=== PATIENT | female | born 1980 | race Caucasian/White ===

== ENCOUNTER 2018-12-25 00:48 | Outpatient (CLI) | payer BC, SELFPAY ==
--- NOTE | 2018-12-25 13:28 | DI.RAD_ITS ---
SYMPTOMS/DIAGNOSIS: LT SHOULDER PAIN, M25.512 LEFT SHOULDER: Five views were obtained. No bony or soft tissue abnormality seen.
== END 2018-12-25 01:08 ==
PROVIDERS: PCP Nurse Practitioner Family; Visit Provider Nurse Practitioner Family
DX: M25.512 Pain in left shoulder (principal)
CPT/HCPCS: 73030

== ENCOUNTER 2020-05-10 02:00 | Outpatient (CLI) | payer BC, SELFPAY ==
--- NOTE | 2020-05-10 08:15 | DI.MAMMO_ITS ---
EXAM: MAMMO SCREENING CLINICAL HISTORY: screening, Z12.39 TECHNIQUE: Mammograms were interpreted according to the usual protocol including computer analysis w [email or web address] CAD system, tomosynthesis and C-view imaging. COMPARISON: Baseline examination. FINDINGS: The breasts are composed of scattered fibroglandular densities, Breast Density category B. No suspicious masses or suspicious microcalcifications are seen. No skin thickening or abnormal axillary lymph nodes are seen. There has been no significant change from prior exams. IMPRESSION: BI-RADS Category 1 - Negative Yearly screening mammography is recommended. Breast Density Category B, scattered fibroglandular densities.
== END 2020-05-10 02:20 ==
PROVIDERS: PCP Nurse Practitioner Family; Visit Provider Nurse Practitioner Family
DX: Z12.31 Encounter for screening mammogram for malignant neoplasm of breast (principal)
CPT/HCPCS: 77063; 77067

== ENCOUNTER 2021-07-06 15:19 | Outpatient (REF) | payer BC, SELFPAY ==
--- NOTE | 2021-07-06 14:45 | PAPFT_PTH ---
PATIENT: Mayela Power LOC: [facility] U#:[id number] AGE/SX: 40/F ROOM: RE07/06/[address]: MELISSA Nash : 1980 BED: DIS: 07/06/2021 SPEC #: [id number] RECD: 07/10/21 12:06 STATUS: NANI RESamuel #: [id number] MARITZA: 07/06/21 14:[address]: Kyra Prince DEPT: [facility] Cytology RECD BY: Robyn Alberts Tissues: 1 - CX/ENDOCX FOR PAP SMEARS Procedures: PAP THIN PREP/UVM Screening HPV DNA PROBE Comments: [id number]
== END 2021-07-06 15:20 | disposition home or self-care (01) ==
LOC: LBN 15:19
PROVIDERS: PCP Nurse Practitioner Family; Visit Provider Nurse Practitioner Family
DX: Z12.4 Encounter for screening for malignant neoplasm of cervix (principal); Z11.51 Encounter for screening for human papillomavirus (HPV)
CPT/HCPCS: 88142; 87624

== ENCOUNTER 2022-01-24 03:35 | Outpatient (CLI) | payer BC, SELFPAY ==
[2022-01-24 07:49] LABS: Hemoglobin A1C 5.3 % (<5.7)
[2022-01-24 08:09] LABS: Anion Gap 6.6 mmol/L (3-11); BUN 12 mg/dL (7-18); CO2 29.4 mmol/L (21.0-32.0); CREATININE 0.9 mg/dL (0.55-1.02); Calcium 8.6 mg/dL (8.5-10.1); Calculated LDL 104 mg/dL (<100); Chloride 103 mmol/L (98-107); Cholesterol 172 mg/dL (<200); Glucose 92 mg/dL (74-106); HDL Cholesterol 49 mg/dL (40-60); Sodium 139 mmol/L (136-145); Triglyceride 97 mg/dL (<150)
== END 2022-01-24 03:36 | disposition home or self-care (01) ==
LOC: LBO 03:35
PROVIDERS: PCP Nurse Practitioner Family; Visit Provider Nurse Practitioner Family
DX: Z00.00 Encounter for general adult medical examination without abnormal findings (principal)
CPT/HCPCS: 36415; 80048; 80061; 83036

== ENCOUNTER 2022-07-05 14:17 | Outpatient (REF) | payer BC, SELFPAY ==
[2022-07-08 15:31] LABS: Helicobacter pylori Ag, Feces Negative (Negative)
== END 2022-07-05 14:18 | disposition home or self-care (01) ==
LOC: LBN 14:17
PROVIDERS: PCP Nurse Practitioner Family; Visit Provider Nurse Practitioner Family
DX: R10.13 Epigastric pain (principal)
CPT/HCPCS: 87338

== ENCOUNTER 2022-07-12 01:34 | Outpatient (CLI) | payer BC, SELFPAY ==
[2022-07-12 07:38] LABS: Abs Immature Grans 0.04 10^3/uL (0.0-0.06); Absolute Basophil Count 0.05 10^3/uL (0.0-0.2); Absolute Eosinophil Count 0.18 10^3/uL (0.0-0.7); Absolute Lymphocyte Count 2.34 10^3/uL (1.2-3.4); Absolute Monocyte Count 0.63 10^3/uL (0.1-0.8); Absolute Neutrophil Count 5.07 10^3/uL (1.2-6.7); Basophils % 0.6; Eosinophils % 2.2; HCT 46.9 % (36.0-46.0); HGB 15.3 g/dL (11.2-15.7); Immature Grans % 0.5; Lymphocytes % 28.2; MCH 28.3 pg (27.0-33.0); MCHC 32.6 % (32.0-36.0); MCV 87 fL (80-95); MPV 10.7 fL (8.0-11.0); Monocytes % 7.6; Neutrophils % 60.9; Platelet Count 271 10^3/uL (130-400); RBC 5.41 10^6/uL (3.93-5.22); RDW-SD 40.8 fL; WBC 8.31 10^3/uL (4.4-10.8)
[2022-07-12 08:13] LABS: ALT 26 U/L (14-59); AST 16 U/L (15-37); Albumin 3.8 g/dL (3.4-5.0); Alkaline Phosphatase 65 U/L (46-116); Amylase 35 U/L (25-115); Anion Gap 1.6 mmol/L (3-11); BUN 14 mg/dL (7-18); Bilirubin, Total 0.3 mg/dL (0.2-1.0); CO2 30.4 mmol/L (21.0-32.0); CREATININE 0.8 mg/dL (0.55-1.02); Calcium 8.5 mg/dL (8.5-10.1); Chloride 100 mmol/L (98-107); Estimated GFR 94.28 (mL/min/1.73m2); Glucose 91 mg/dL (74-106); Lipase 102 U/L (73-393); Potassium 3.7 mmol/L (3.5-5.1); Sodium 132 mmol/L (136-145); Total Protein 7.6 g/dL (6.4-8.2)
== END 2022-07-12 01:35 | disposition home or self-care (01) ==
PROVIDERS: PCP Nurse Practitioner Family; Visit Provider Nurse Practitioner Family
DX: R10.13 Epigastric pain (principal)
CPT/HCPCS: 36415; 80053; 83690; 82150; 85025

== ENCOUNTER 2023-03-17 09:57 | Day surgery (SDC) | payer BC, SELFPAY ==
--- NOTE | 2023-03-16 19:16 | W.PM.DSUDISC ---
Date of service: 03/17/23 Time of Service: 12:25 Discharge Plan Disposition Patient Disposition: Home Condition: Good Discharge Details Reason For Visit: EGD Attending Provider: Silas Waters Primary Care Provider: Kyra Prince Home Meds and New Rx's Prescriptions: Continued omeprazole 20 mg capsule,delayed release(DR/EC) 20 mg PO BID PRN famotidine 20 mg tablet 20 mg PO BID PRN (Reason: heartburn) Qty: 90 3RF Discharge Instructions Additional Instructions: Mayela, we were able to complete your EGD today without any difficulty. To the naked eye, everything appeared normal. The anatomy is just as I would expect, and I did not see any signs of inflammation, obstructions, or other problems that would be associated with the pain and discomfort that you experience. Like we talked about, however, there are some problems of the upper gastrointestinal symptoms that are not evident to the naked eye. I did perform random biopsies along multiple portions of the esophagus, stomach, and duodenum to assess for some of these problems. Like we talked about before your procedure, we will still plan to do the gallbladder ultrasound, and HIDA scan. So please keep those appointments. once I have the results from the biopsies and those test results, I will be in touch. 1. If tolerated, consume a soft, low fiber diet for 1-2 days. 2. Do not drive, drink alcohol, operate machinery, make critical decisions, or do activities that require coordination or balance for 24 hours. 3. You may experience a sore throat for 24 to 48 hours. You may use throat lozenges or gargle with warm salt water to relieve the discomfort. 4. Because air was put into your stomach during the procedure, you may experience some belching. 5. Go directly to the emergency room if you notice any of the following: Develop chills (warm to touch), or if you have a thermometer and your temperature is above 101 Difficulty breathing or difficultly swallowing Persistent vomiting Severe abdominal pain, other than gas cramps Severe chest pain Black, tarry stools Any bleeding ? exceeding one tablespoon 6. Call your physician if the site where your intravenous was started becomes red, swollen, painful, and warm to touch. 7. Your physician has reviewed your pre-procedure medications. Please continue to take those medications as previously ordered. You will be given specific information/education regarding any changes to your medications before leaving. Activity:: Activity as Tolerated Diet:: As Tolerated Discharge Orders Discharge Orders: Discharge Order (Routine); Ordered 03/16/23 Ordered By: Silas Waters DS: Diagnosis Discharge Diagnosis (1) Epigastric abdominal pain: Status: Acute Asessment and Plan: We will follow-up with the pathology results
--- NOTE | 2023-03-16 19:18 | ENDO_ITS ---
Date of service: 03/17/23 Time of Service: 12:22 Endoscopy Report DATE OF PROCEDURE: 03/17/23 PRE-OP DIAGNOSIS: Abdominal pain POST-OP DIAGNOSIS: same PROCEDURE: EGD with biopsies SURGEON: Silas Waters ANESTHESIA TYPE: General:No Airway ESTIMATED BLOOD LOSS: 10 PATHOLOGY: other (Duodenal, gastric antrum and body biopsies. Esophageal biopsies) COMPLICATIONS: None DISPOSITION: same day INDICATIONS: Mayela is a 42 year old woman with several months of midepigastric abdominal pain refractory to PPI therapy. PROCEDURE START TIME: 11:59 PROCEDURE END TIME: 12:07 FINDINGS: Normal-appearing EGD PROCEDURE DESCRIPTION: After the initiation of monitored anesthetic care, and with the assistance of a bite block, I advanced a standard gastroscope through the mouth past the hypopharynx and into the esophagus.? Under the direct vision of the scope, I advanced down the esophagus into the stomach.? Once I entered the stomach, I performed a brief inspection, followed by retroflexion towards the gastric cardia.? This appeared normal.? After that, I gently advanced the scope around the incisura angularis and examined the pylorus.? This also appeared normal.? Next, I advanced the scope through the pylorus into the duodenum.? The mucosa was pink and healthy appearing.? There were no abnormalities.? I was able to visualize bile draining into the duodenum through the ampulla Vater. ?I perform random biopsies of the duodenum before bringing the camera back up into the stomach. Again, I carefully examined all regions of the stomach. I did not see any polyps, tumors, AV malformations, or anything else out of the ordinary. I perform random biopsies of the gastric antrum and body. I then brought the camera back up to the GE junction. The Z-line and GE junction were normal- appearing right around 36 cm. ?Finally, I withdrew the scope along the length of the esophagus taking great care to examine the entirety of the mucosa.? I perform random biopsies of the esophagus as well. I did not appreciate any abnormalities.
[2023-03-17 10:00] VITALS: BP 108/90; PULSE 84; RESP 16; TEMP 36.2; O2SAT 100
[2023-03-17] MEDS: Lactated Ringers 1,000 ML 80 ML IV (10:35)
--- NOTE | 2023-03-17 11:16 | W.ANESPRE ---
General Info Date of Service Date Performed: 03/17/23 Height: 5 ft 1 in Weight: 65.1 kg Body Mass Index (BMI): 27.1 Surgical Procedure: Operation Date: 03/17/23 11:35 Proposed Procedure Side Surgeon p Gastroscopy Silas Waters MD Meds Allergies and Home Medications Allergies Allergy/AdvReac Type Severity Reaction Status Date / Time No Known Allergies Allergy Verified 03/17/23 10:15 Home Medication Medication Instructions Recorded famotidine 20 mg tablet 20 mg PO BID PRN heartburn #90 tabs 09/30/22 omeprazole 20 mg capsule,delayed 20 mg PO BID PRN 12/19/22 release Current Visit Medications: Current Medications Generic Name Dose Route Start Last Admin Trade Name Freq PRN Reason Stop Dose Admin Hyoscyamine Sulfate 0.125 mg 03/16/23 19:19 Hyoscyamine 0.125 Mg Sl/Oral/Chew SL 04/15/23 19:18 DIRECTED PRN Ringer's Solution 1,000 mls @ 80 mls/hr 03/17/23 06:00 03/17/23 10:35 IV 04/13/23 23:59 80 mls/hr INFUSION FAYE Administration IV Miscellaneous Supplies 1 each 03/17/23 06:00 Iv Access IV 04/13/23 23:59 DIRECTED FAYE Ondansetron HCl 4 mg 03/16/23 19:19 Ondansetron 4 Mg/2 Ml Vial IVP 04/15/23 19:18 Q4H PRN PRN Nausea / Vomiting Sodium Chloride 0 ml 03/17/23 06:00 Normal Saline Flush 10 Ml Syr IV 04/13/23 23:59 PRN PRN Sodium Chloride 0 ml 03/17/23 06:00 Normal Saline 10 Ml Vial IJ 04/13/23 23:59 DIRECTED PRN Sterile Water 0 ml 03/17/23 06:00 Water,Injection,Sterile 10 Ml Vial IJ 04/13/23 23:59 DIRECTED PRN PFSH Active Problems Active Problems: Problem Status Onset Code Epigastric abdominal pain R10.13 Gastroesophageal reflux disease K21.9 Cervicalgia M54.2 Hyperlipidemia E78.5 Cigarette smoker F17.210 Medical History Medical History COVID-19 virus infection (~07/2022) Surgical History Surgical History History of ankle surgery (~02/2011) Right ankle reconstruction and osteophyte excision History of removal of nevus (~2012) 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 Tobacco Smoking/Tobacco Use Status: Current every day Tobacco Type: cigarettes Passive smoking exposure: Yes Second hand exposure: Yes Alcohol Alcohol Intake: current Alcohol intake frequency: a few times a month Alcohol type: beer Substance Use Substance use: Never Substance use type: does not use Prental History History 0 Para Hx # Term Pregnancies Multiple births Hx # Pregnancies Ectopic pregnancies AB induced Hx Number of Living Children AB spontaneous Vital Signs and Lab Results Vital Signs Most Recent Vital Signs in EMR: Most Recent Vital Signs Temp Pulse Resp BP Pulse Ox 36.2 C L 84 16 108/90 100 03/17/23 10:00 03/17/23 10:00 03/17/23 10:00 03/17/23 10:00 03/17/23 10:00 Lab Results Blood Type / Crossmatch: No Data to Display Complete Blood Count: No Data to Display Complete Metabolic Panel: No Data to Display Liver Function Panel: No Data to Display Coagulation Panel: No Data to Display Cardiac Panel: No Data to Display Arterial Blood Gas: No Data to Display Venous Blood Gas: No Data to Display Pancreas Panel: No Data to Display Thyroid Panel: No Data to Display Infectious Disease: No Data to Display Blood Cultures: No Data to Display Toxicology Panel: No Data to Display Panel: No Data to Display Anesthesia Assessment and Plan Anesthesia History Personal History: No History of Anesthesia Complications Family History: No Family History of Anesthesia Complications Exercise Tolerance Exercise Tolerance: Metabolic Equivalents>4 Pertinent Negatives Pertinent Negatives: No Major Cardiovascular Symptoms or Complaints and No Major Pulmonary Symptoms or Complaints Cardiac & Pulmonary Exam Cardiac Exam: Normal S1/S2 Heart Sounds Pulmonary Exam: Clear Bilateral Breath Sounds Cardiac and Pulmonary Comment:: Smoker Implantable Cardiac Device Does patient have a Pacemaker or an ICD?: No Airway Exam Known Difficult Airway: No Mallampati Class: 2 Mouth Opening: Normal (> 3cm) Thyromental Distance: Greater than 3 cm Neck Range of Motion: Full ROM Neck Circumference: Normal Teeth Condition: Normal Dentition ASA Classification ASA Score: ASA 2 Emergency Case?: No NPO Status NPO Status: NPO Clears >2 hours, Solids >8 hours Status Status: Negative HCG Anesthesia Plan Resuscitation Status: Full Code Anesthesia Technique: General Anesthesia Airway Planned: Natural Airway Monitors Used: Standard Monitors
[2023-03-17 11:49] VITALS: BMI 27.1
--- NOTE | 2023-03-17 12:02 | STOM_PTH ---
PATIENT: Mayela Power LOC: [facility] U#:[id number] AGE/SX: 42/F ROOM: RE03/17/[address]: Silas Waters MD : 1980 BED: DIS: 03/17/2023 SPEC #: [id number] RECD: 03/17/23 13:15 STATUS: [facility] #: [id number] MARITZA: 03/17/23 12:[address]: Silas Waters DEPT: Surgical Specimen RECD BY: Cleopatra Alonso ENTERED: 03/17/23 13:16 SP TYPE: STOMACH OTHR DR: Kyra Prince, MELISSA Tissues: 1 - BIOPSY BOWEL 2 - STOMACH BIOPSY 3 - STOMACH BIOPSY 4 - ESOPHAGUS BIOPSY Procedures: GROSS AND MICRO LEVEL 4 Comments: [id number]
[2023-03-17 12:17] VITALS: BP 102/81; PULSE 91; RESP 18; TEMP 36.6; O2SAT 97
[2023-03-17 12:47] VITALS: BP 113/85; PULSE 76; RESP 18; TEMP 36.6; O2SAT 100
--- NOTE | 2023-03-17 13:10 | W.ANESPOSTOP ---
Postoperative Evaluation Date, Time and Location Date Performed: 03/17/23 Time Performed: 12:47 Patient Location: Day Surgery Unit Vital Signs Most Recent Imported Vital Signs: Most Recent Vital Signs Temp Pulse Resp BP Pulse Ox 36.6 C 76 18 113/85 100 03/17/23 12:47 03/17/23 12:47 03/17/23 12:47 03/17/23 12:47 03/17/23 12:47 Pain Score Most Recent Pain Score: Most Recent Pain Score Pain Level 0 03/17/23 12:47 Assessment Mental Status: Awake (Alert & Oriented to Patient Baseline) Airway and Respiratory Function: Patent airway with normal (patient baseline) respiratory exam Cardiovascular Function: Hemodynamically Stable Hydration Status: Adequately Hydrated Nausea & Vomiting: No Nausea or Vomiting Pain: Pt. Denies Any Pain Peripheral Nerve Block: Patient did not receive a nerve block
== END 2023-03-17 12:58 | disposition home or self-care (01) ==
PROVIDERS: PCP Nurse Practitioner Family; Visit Provider Surgery
PROC: 0DJ68ZZ Inspection of Stomach, Via Natural or Artificial Opening Endoscopic (ICD-10-PCS; CPT 43235; principal; 2023-03-17 11:30)
DX: R10.13 Epigastric pain (principal); K22.89 Other specified disease of esophagus; K31.89 Other diseases of stomach and duodenum
CPT/HCPCS: 43239; 88305; J2405

== ENCOUNTER 2023-03-28 00:21 | Outpatient (CLI) | payer BC, SELFPAY ==
--- NOTE | 2023-03-28 07:15 | DI.US_ITS ---
Exam(s) US ABDOMEN LIMITED EXAM: US ABDOMEN LIMITED CLINICAL HISTORY: gallbladder not visualized on last US,pre hida,epigastric abd pain,r10.13 TECHNIQUE: Ultrasound abdomen performed using standard protocol. COMPARISON: Today's ultrasound as well as prior ultrasound was reviewed. FINDINGS: There is no ascites evident. LIVER: There are no hepatic lesions evident nor dilatation of intrahepatic ducts. GALLBLADDER/BILIARY: Gallbladder is contracted. No obvious shadowing calculi. The common hepatic duct isnot dilated, measuring 4mm at the level of aprish hepatis. PANCREAS: There is no evidence of pancreatic mass nor dilatation of the pancreatic duct. RIGHT KIDNEY:No evidence of solid mass, calculus, nor hydronephrosis. No cortical cysts evident. IMPRESSION: 1. Contracted gallbladder, similar to the previous study. No obvious shadowing gallstones. 2. Common hepatic duct is not dilated, measuring 4 mm. 3. There is no ascites. DATA REPOSITORY:
--- NOTE | 2023-03-28 07:15 | DI.NM_ITS ---
Exam(s) NM HEPATOBILIARY SCAN GRP EXAM: NM HEPATOBILIARY SCAN GRP CLINICAL HISTORY: epigastric abd pain,r10.13,? biliary dyskenesia. TECHNIQUE: Injected dose: 5 mCi Tc-99 profound COMPARISON: Prior ultrasound reviewed FINDINGS: There is normal uptake and excretion of radiopharmaceutical by the liver. There is radiopharmaceutic al activity down the CBD and duodenal C-loop and into left upper quadrant small bowel loops. However , there is no uptake evident in the gallbladder, even at 2.5 hours CCK was not therefore administered. IMPRESSION: Abnormal study. There is absence of activity in the gallbladder lumen at 2.5 hours. Findings are co nsistent with obstruction of the cystic duct.
== END 2023-03-28 00:41 ==
LOC: DI 00:21
PROVIDERS: PCP Nurse Practitioner Family; Visit Provider Surgery
DX: R10.13 Epigastric pain (principal); K82.0 Obstruction of gallbladder
CPT/HCPCS: 78227; 76705

== ENCOUNTER 2023-06-15 14:34 | Inpatient (IN) | payer BC, SELFPAY ==
[2023-06-15 14:38] VITALS: BP 134/99; PULSE 85; RESP 20; TEMP 36.8; O2SAT 99
[2023-06-15 14:41] VITALS: BP 134/99; PULSE 81; RESP 18; O2SAT 98
--- NOTE | 2023-06-15 15:02 | ED.GENADUL_ITS ---
Discharge Plan Discharge Details Chief Complaint: Abd Prob Primary Care Provider: Kyra Prince ED Provider: Kyle Arroyo Home Meds and New Rx's Prescriptions: No Action sucralfate 1 gram tablet 1 g PO QACHS Qty: 90 3RF Rx Instructions: Take as instructed simethicone [Gas Relief (simethicone)] 125 mg capsule 125 mg PO QD-BID PRN (Reason: abdominal distention) Qty: 90 3RF Rx Instructions: Take as instructed Medical Decision Making Medical Records Medical records narrative: 42-year-old lady who was diagnosed with choledocholithiasis with mild biliary dilatation. This diagnosis was read by CAT scan. She had significant normalities of her transaminases with mild elevation of her bilirubin which was 5. She was treated initially with 15 mg of Toradol with good results. Following the results of all her blood work which included normal CBC and no elevation of the white count and a normal lipase, the case was discussed with Dr. Palmer who admitted the patient for further management HPI General Date/Time Provider Initiated Documentation: 06/15/23 15:02 . HPI Narrative: 42-year-old woman presents to the emergency department with epigastric pain with some radiation to the right since Friday after eating some grilled cheese and pizzas. Associate with some nausea no vomiting. No fevers no chills tried placing a heating pad on her epigastrium without any relief. Took 1 Motrin last night without any relief. Is a lady who was diagnosed with a dysfunctional gallbladder in April of this year. She was seen by Dr. Waters from surgery was recommended cholecystectomy but patient did not want to do this during the summer. He states that the pain has been relentless since Friday night Related Data Home Medications Medication Instructions Recorded Confirmed simethicone 125 mg capsule (Gas 125 mg PO QD-BID PRN abdominal 04/02/23 06/15/23 Relief (simethicone)) distention #90 caps sucralfate 1 gram tablet 1 g PO QACHS bile reflux #90 tabs 04/02/23 06/15/23 Previous Rx's Medication Instructions Recorded simethicone 125 mg capsule (Gas 125 mg PO QD-BID PRN abdominal 04/02/23 Relief (simethicone)) distention #90 caps sucralfate 1 gram tablet 1 g PO QACHS bile reflux #90 tabs 04/02/23 Allergies Allergy/AdvReac Type Severity Reaction Status Date / Time No Known Allergies Allergy Verified 06/15/23 14:42 General Stated Complaint: Abd Prob MILAN: 3 Review of Systems Narrative: 10 point review of system is negative unless otherwise specified in the HPI PFSH All Active Problems Epigastric abdominal pain (Acute) Gastroesophageal reflux disease (Chronic) Cervicalgia (Chronic) Hyperlipidemia (Chronic) Cigarette smoker (Chronic) Medical History COVID-19 virus infection (~07/2022) Surgical History History of ankle surgery (~02/2011) Right ankle reconstruction and osteophyte excision History of removal of nevus (~2012) 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 Family History Mother Heart disease Atrial fibrillation Hypertension Father Alcohol abuse Depression Heart disease Hyperlipidemia Hypertension Sister Hypertension Maternal Grandfather Heart disease Hypertension Carotid artery disease Valvular heart disease TIA (transient ischemic attack) Maternal Grandmother Depression TIA (transient ischemic attack) Paternal Grandfather Stroke Heart disease Hypertension Hyperlipidemia Paternal Grandmother Depression Social History Smoking/Tobacco Use Status: Current every day Tobacco Type: cigarettes Tobacco: How many years used: 20 Quit status: quit date established (has quit before but restarted. ) Second Hand Exposure: Yes Smoking risk assessment performed?: Yes Alcohol Intake: current Alcohol Intake frequency: a few times a month Alcohol type: beer Drug use: Never Substance use type: does not use Caregiver/Support person: No Household members: significant other and children Housing: house Do you need help understanding health information?: Never Pets and animals: Yes Pets and animals: dog(s) Sexually active: Yes Do you think of yourself as: straight/heterosexual Current gender identity: female What is your relationship status?: living with partner How often do you talk on the phone with friends or family?: three or more times per week How often do you get together with friends or relatives?: twice per week How often do you attend mandaeism or mu-ism services?: 1-3 times per year Do you belong to any clubs or organized social groups?: no Panel score (0-1 are the most socially isolated patients): 2 What type of physical activity do you participate in: walking Duration: 15-30 minutes/day Frequency: 3-4 times per week Ebony/Scientologist: Cheondoism Special ebony needs: No Seatbelt use: always Helmet use: Yes Helmet use: always 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 Do you feel safe at home: Yes Do you feel safe in your relationship?: Yes Female Reproductive History Menstrual control method: other (Vasectomy) History History 0 Para Hx # Term Pregnancies Multiple births Hx # Pregnancies Ectopic pregnancies AB induced Hx Number of Living Children AB spontaneous Exam Narrative Exam Narrative: General: A,A Ox3, Calm, no apparent distress, well developed, pleasant and cooperative Head Size/Shape: normocephalic, atraumatic Eyes Pupils: PERRLA Extraocular Mobility: intact and symmetrical Conjunctiva: non-injected, anicteric, no discharge Ears, Nose, Throat Nares: patent bilaterally Oral Cavity: moist Neck: no masses, no crepitus Lymph Nodes: no cervical lymphadenopathy Respiratory Respiratory Effort: no dyspnea Auscultation: clear to auscultation bilaterally, normal breath sounds, no wheezing, no rales/crackles Cardiovascular Heart Auscultation: regular rate and rhythm, normal S1, normal S2, no murmurs, no rubs, no gallops, Abdomen Inspection and Palpation: soft, epigastric discomfort, equivical [place] non- distended, no hepatosplenomegaly Musculoskeletal System Joints, Bones, and Muscles: no deformities Extremities: warm and well-perfused, no cyanosis, capillary refill <2 seconds Skin Skin Inspection: no rash, no lesions, no bruising Neurological Motor: normal tone, normal strength, moving all extremities equally Psychiatric: good insight, good judgement, normal mood and affect Course Vital Signs Vital signs: Vital Signs Temperature 36.8 C 06/15/23 14:38 Pulse 85 06/15/23 14:38 Respiratory Rate 20 06/15/23 14:38 Blood Pressure 134/99 H 06/15/23 14:38 Pulse Oximetry 99 06/15/23 14:38 Temperature 36.8 C 06/15/23 14:38 Pulse 85 06/15/23 14:38 Respiratory Rate 20 06/15/23 14:38 Respiratory Effort Normal 06/15/23 14:43 Blood Pressure 134/99 H 06/15/23 14:38 Blood Pressure Position Sitting 06/15/23 14:38 Pulse Oximetry 99 06/15/23 14:38 Oxygen Delivery Method Room Air 06/15/23 14:38 Oxygen Flow Rate 0 06/15/23 14:38 Pain Level 8 06/15/23 14:38 PAWSS Have you Been Recently Intoxicated or Drunk Within the Last 30 days?: Yes Have you Ever Experienced Previous Episodes of Alcohol Withdrawal?: No Have you ever Experienced Withdrawal Seizures?: No Have you ever Experienced Delirium Tremens(DT)s?: No Have you ever undergone Alcohol Rehabilitation Treatment (i.e, inpt ot outpatient treatment programs)?: No Have you ever Experienced Blackouts?: No Have you ever Combined Alcohol with other Downers within the last 90 days?: No Have you ever Combined Alcohol with any other Substance of Abuse during the last 90 days?: No Positive Blood Alcohol level on Presentation? [PCS.BAL]: No Evidence of Increased Autonomic Activity (i.e. HR>120, tremor, sweating, agitation, nausea)?: No Result: 1
[2023-06-15] MEDS: Ondansetron 4 MG/2 ML VIAL IVP (15:16)
[2023-06-15] MEDS: Ketorolac 15 MG/ML VIAL IVP (15:16)
[2023-06-15 15:17] LABS: Abs Immature Grans 0.04 10^3/uL (0.0-0.06); Absolute Basophil Count 0.04 10^3/uL (0.0-0.2); Absolute Eosinophil Count 0.19 10^3/uL (0.0-0.7); Absolute Lymphocyte Count 1.81 10^3/uL (1.2-3.4); Absolute Monocyte Count 0.44 10^3/uL (0.1-0.8); Absolute Neutrophil Count 4.96 10^3/uL (1.2-6.7); Basophils % 0.5; Eosinophils % 2.5; HCT 44.9 % (36.0-46.0); HGB 14.9 g/dL (11.2-15.7); Immature Grans % 0.5; Lymphocytes % 24.2; MCH 28.3 pg (27.0-33.0); MCHC 33.2 % (32.0-36.0); MCV 85 fL (80-95); MPV 10.7 fL (8.0-11.0); Monocytes % 5.9; Neutrophils % 66.4; Platelet Count 270 10^3/uL (130-400); RBC 5.27 10^6/uL (3.93-5.22); RDW 13.7 % (11.7-14.6); RDW-SD 42.6 fL; WBC 7.48 10^3/uL (4.4-10.8)
[2023-06-15] MEDS: Normal Saline 1,000 ML 1000 ML IV (15:26)
--- NOTE | 2023-06-15 15:30 | DI.CT_ITS ---
Exam(s) CT ABDOMEN PELVIS W EXAM: CT ABDOMEN PELVIS W CLINICAL HISTORY: abd pain. TECHNIQUE: Imaging Protocol: Axial computed tomography images with coronal and sagittal reformatted images were created and reviewed CONTRAST MATERIAL: Intravenous: Omnipaque-350 100cc Oral: None COMPARISON: No exams were available for comparison FINDINGS: VISUALIZED LUNG BASES: No nodules nor pleural effusions evident. ABDOMEN: There is no ascites. LIVER: There are no focal hepatic lesions evident. There is periportal edema evident in both hepatic lobes GALLBLADDER/BILIARY: There is cholelithiasis. There is a prominent gallstone in the gallbladder fund us. Mild gallbladder wall thickening evident. There are also radiopaque calculi evident in the lowe r CBD, the stacked over a cephalocaudal distance of 1.7 cm. CBD diameter is minimally prominent-8 mm . PANCREAS: No evidence of pancreatitis nor dilatation pancreatic duct. No pancreatic masses. SPLEEN: Spleen is not enlarged. No obvious intrasplenic lesions. Splenic and portal veins are paten t. ADRENALS: There are no significant adrenal masses. KIDNEYS:No cysts evident. No solid renal masses. No calculi nor hydronephrosis.. ABDOMINAL AORTA: Abdominal aorta is not enlarged. LYMPH NODES:There is no retroperitoneal nor paraaortic adenopathy. ABDOMINAL WALL: No evidence of significant anterior abdominal wall nor inguinal hernia. GI: There is no evidence of bowel obstruction, free air, nor abscess. PELVIS: GI: No evidence of appendicitis.No evidence of sigmoid diverticulitis. LYMPH NODES: There is no intrapelvic nor inguinal adenopathy. REPRODUCTIVE: Uterus is deviated towards the right. Endometrial thickness is approximately 1 cm. Ri ght adnexa unremarkable. There is a peripherally enhancing cyst in left ovary measuring to by 2 by 1 .7 cm, probably corpus luteal. URINARY BLADDER: No calculi nor obvious masses evident OSSEOUS: No fractures and no significant osseous lesions. IMPRESSION: 1. Cholelithiasis and choledocholithiasis with mild dilatation of the CBD (8 mm) above a stack of josue culi seen in the lower CBD which extends over a cephalocaudal distance of 1.7 cm. These calculi in t he lower CBD measure approximately 4 mm size. 2. No evidence of pancreatitis nor dilatation pancreatic duct. 3. There is rim enhancing cyst in left ovary measuring 1.7 by 2 cm, probably corpus luteal. Endometr ium slightly thickened. These findings can be further studied with ultrasound. Main acute findings here are in the biliary tree, as described above. First read by [facility] RADIATION DOSE DELIVERED: 685.67mGy.cm Total DLP DATA REPOSITORY: All CT scans at this facility are submitted to the National Radiology Data Registry (NRDR) Dose Index Registry (DIR) with the [employer] (ACR). RADIATION OPTIMIZATION: All CT scans at this facility use at least one of these dose optimization te chniques: automated exposure control; mA and/or kV adjustment per patient size (includes targeted exa ms where dose is matched to clinical indication); or iterative reconstruction.
[2023-06-15 15:32] LABS: ALT 604 U/L (14-59); AST 200 U/L (15-37); Albumin 3.9 g/dL (3.4-5.0); Alkaline Phosphatase 193 U/L (46-116); Anion Gap 9.3 mmol/L (3-11); BUN 7 mg/dL (7-18); CO2 28.7 mmol/L (21.0-32.0); CREATININE 0.8 mg/dL (0.55-1.02); Calcium 8.7 mg/dL (8.5-10.1); Chloride 101 mmol/L (98-107); Glucose 103 mg/dL (74-106); Sodium 139 mmol/L (136-145); Total Protein 7.5 g/dL (6.4-8.2)
[2023-06-15 15:56] LABS: Lipase 33 U/L (16-77)
[2023-06-15] MEDS: Normal Saline Flush 10 ML SYR IVP (16:21)
[2023-06-15] MEDS: Normal Saline - Diluent 50 ML VIAL IJ (16:22)
[2023-06-15] MEDS: Omnipaque 350 MG/ML 100 ML BTL IJ (16:22)
[2023-06-15 16:33] LABS: Bilirubin Small (Negative); Blood Small (Negative); Clarity Clear (Clear); Glucose Negative (Negative); Ketones Trace mg/dL (Negative); Leukocyte Esterase Negative (Negative); Nitrite Negative (Negative); Urobilinogen 0.2 mg/dL (Up to 0.2)
[2023-06-15 16:47] LABS: Bacteria Rare HPF (Negative); C & S Indicated? No; Casts Negative LPF (Negative); Crystals Negative HPF (Negative); Epithelial Cells Rare HPF (Negative); Mucus Negative (Negative); WBC Negative HPF (0-5)
[2023-06-15] MEDS: POTASSIUM CHLORIDE 10 MEQ/100 ML BAG 100 MEQ IVPB ×2 (16:52→19:19)
--- NOTE | 2023-06-15 17:14 | DI.VRAD_ITS ---
PROCEDURE INFORMATION: Exam: CT Abdomen And Pelvis With Contrast Exam date and time: 06/15/2023 4:36 PM Age: 42 years old Clinical indication: Other: Abd pain TECHNIQUE: Imaging protocol: Computed tomography of the abdomen and pelvis with contrast. Radiation optimization: All CT scans at this facility use at least one of these dose optimization techniques: automated exposure control; mA and/or kV adjustment per patient size (includes targeted exams where dose is matched to clinical indication); or iterative reconstruction. Contrast material: OMNI 350; Contrast volume: 100 ml; Contrast route: INTRAVENOUS (IV); COMPARISON: NM HEPATOBILIARY SCAN GRP 03/28/2023 10:37 AM FINDINGS: Lungs: Lung bases are clear. Pleural spaces: No pleural effusion. Heart: Normal heart size. No pericardial effusion. No coronary artery atherosclerotic calcium is visible. Liver: Liver is normal in size and contour. Gallbladder and bile ducts: Gallstones, gallbladder distention, intrahepatic and extrahepatic biliary dilatation, and a distal common bile duct stone at the level of the pancreatic head measuring 4 x 3 mm. Series 4, image 33. Series 6, image 49 and 50. It is possible that there are multiple small stones stacking in the distal common bile duct. The length of the calcium cephalo caudal on the coronal view is 1.6 cm. Pancreas: No pancreatic ductal dilatation. Pancreatic parenchyma is unremarkable. Spleen: The spleen is normal in size, contour and attenuation. Adrenal glands: The adrenal glands are normal in size and contour bilaterally. Kidneys and ureters: The kidneys bilaterally are unremarkable. Normal attenutation. No hydronephrosis. No calculi. Stomach and bowel: Unremarkable. No obstruction. No mucosal thickening. Appendix: No evidence of appendicitis. Intraperitoneal space: Unremarkable. No free air. No significant fluid collection. Vasculature: Unremarkable. No abdominal aortic aneurysm. Lymph nodes: Unremarkable. No enlarged lymph nodes. Urinary bladder: Urinary bladder is unremarkable in appearance. No wall thickening. No intravesicular calculi. No intravesicular gas. Reproductive: Uterus is unremarkable. Nonspecific left ovarian rim enhancing cyst measuring 2.0 x 1.6 cm. A nonemergent pelvic ultrasound follow-up is suggested. Bones/joints: Unremarkable. No acute fracture. Soft tissues: Unremarkable. IMPRESSION: 1. Choledocholithiasis and mild biliary dilatation. Appearance suggests multiple stone stacking in the common bile duct over a length of 1.6 cm. Stones measure approximally 3 x 4 mm in diameter. Common hepatic duct measuring 8 mm. Mild intrahepatic biliary dilatation. 2. No pancreatic inflammation or pancreatic ductal dilatation. 3. Nonspecific left ovarian rim enhancing cyst measuring 2 x 1.6 cm. Recommend nonemergent pelvic ultrasound follow-up. Dictated and Authenticated by: Lance Crow MD. Ordering:GLENYS Wright MD
[2023-06-15 17:28] VITALS: BP 139/101; PULSE 79; RESP 25; O2SAT 98
--- NOTE | 2023-06-15 17:33 | HPE_ITS ---
Date of service: 06/15/23 Time of Service: 19:46 Assessment and Plan Assessment and plan (1) Choledocholithiasis: Status: Acute Assessment and plan: Mrs Power is a pleasant 42-year-old female who comes in with gallstones in her gallbladder and in her common bile duct. Her LFTs are elevated as is her T bilirubin. Her pain is currently well controlled on morphine and Toradol. She is not nauseated and is not vomiting. I discussed with her the pathophysiology of her disease and the plan for a trip down to [facility] for ERCP and removal of the stones. After that as long as she does not develop pancreatitis from the ERCP we can plan her laparoscopic cholecystectomy. For now we will let her dr ink clear liquids. She will be n.p.o. after midnight in case that she can go down to [facility] tomorrow. I will recheck her labs in the morning. I have been able to answer her questions and she is in agreement with the above-stated plan. History of Present Illness Consults Consult date: 06/15/23 Requesting physician: Kyle Arroyo Narrative: Mrs Power is a pleasant 42-year-old female who comes into the emergency department today with ongoing abdominal pain for a week. She was seen back in April by Dr. Waters in our office for the same epigastric right upper quadrant pain. She underwent EGD which was unremarkable. 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 They discussed laparoscopic cholecystectomy but at that time the patient was having minimal symptoms. She states that her pain started on Friday she had eaten some steamer's and lobster and then had pain. The pain has walked waxed and waned all week. She decided to come in today because the pain was just not getting any better. Work-up in the emergency department showed a normal white count, her potassium was low at 3 which was replaced in the ER and her total bili was elevated at 5 AST was elevated at 200 ALT at 604 and alk phos of 193. A CT scan was also done which I reviewed myself. It shows gallstones and at least 1 if not 2 stones in the common bile duct. There is intra and extrahepatic biliary dilatation there is no gallbladder wall thickening or pericholecystic fluid on the CT scan. She is otherwise healthy. She does have hyperlipidemia and does smoke. No abdominal surgeries in her past. There is no family history of anesthetic issues. She denies any chest pain or shortness of breath. Review of Systems Constitutional Constitutional: Denies anorexia, Denies fever(s), Denies headache(s), Denies poor appetite and Denies weight loss Eyes Eyes: Denies change in vision ENT Ears, Nose, Mouth, and Throat: Denies change in voice, Denies dysphagia and Denies headache(s) Cardiovascular Cardiovascular: Denies chest pain, Denies chest pain at rest, Denies irregular heart rhythm, Denies palpitations, Denies dyspnea and Denies dyspnea on exertion Respiratory Respiratory: Denies cough, Denies dyspnea and Denies dyspnea on exertion Gastrointestinal Gastrointestinal: Reports system reviewed and no additional complaints, except as documented and Denies dysphagia Genitourinary Genitourinary: Reports system reviewed and no additional complaints, except as documented Musculoskeletal Musculoskeletal: Reports system reviewed and no additional complaints, except as documented Integumentary/Breasts Skin/Breast: Reports system reviewed and no additional complaints, except as documented Neurologic Neurologic: Reports system reviewed and no additional complaints, except as documented and Denies headache(s) Psychiatric Psychiatric: Reports system reviewed and no additional complaints, except as documented Endocrine Endocrine: Reports system reviewed and no additional complaints, except as documented and Denies palpitations Hematologic/Lymphatic Hematologic/Lymphatic: Reports system reviewed and no additional complaints, except as documented PFSH All Active Problems Choledocholithiasis (Acute) Epigastric abdominal pain (Acute) Gastroesophageal reflux disease (Chronic) Cervicalgia (Chronic) Hyperlipidemia (Chronic) Cigarette smoker (Chronic) Medical History COVID-19 virus infection (~07/2022) Surgical History History of ankle surgery (~02/2011) Right ankle reconstruction and osteophyte excision History of removal of nevus (~2012) 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 Family History Mother Heart disease Atrial fibrillation Hypertension Father Alcohol abuse Depression Heart disease Hyperlipidemia Hypertension Sister Hypertension Maternal Grandfather Heart disease Hypertension Carotid artery disease Valvular heart disease TIA (transient ischemic attack) Maternal Grandmother Depression TIA (transient ischemic attack) Paternal Grandfather Stroke Heart disease Hypertension Hyperlipidemia Paternal Grandmother Depression Social History Smoking/Tobacco Use Status: Current every day Tobacco Type: cigarettes Tobacco: How many years used: 20 Quit status: quit date established (has quit before but restarted. ) Second Hand Exposure: Yes Smoking risk assessment performed?: Yes Alcohol Intake: current Alcohol Intake frequency: a few times a month Alcohol type: beer Drug use: Never Substance use type: does not use Caregiver/Support person: No Household members: significant other and children Housing: house Do you need help understanding health information?: Never Pets and animals: Yes Pets and animals: dog(s) Sexually active: Yes Do you think of yourself as: straight/heterosexual Current gender identity: female What is your relationship status?: living with partner How often do you talk on the phone with friends or family?: three or more times per week How often do you get together with friends or relatives?: twice per week How often do you attend rastafari or muslim services?: 1-3 times per year Do you belong to any clubs or organized social groups?: no Panel score (0-1 are the most socially isolated patients): 2 What type of physical activity do you participate in: walking Duration: 15-30 minutes/day Frequency: 3-4 times per week Ebony/Roman Catholic: Restorationism Special ebony needs: No Seatbelt use: always Helmet use: Yes Helmet use: always Drive intox or ride w/intox cement truck driver: No Do you feel safe at home: Yes Do you feel safe in your relationship?: Yes Female Reproductive History Menstrual control method: other (Vasectomy) History History 0 Para Hx # Term Pregnancies Multiple births Hx # Pregnancies Ectopic pregnancies AB induced Hx Number of Living Children AB spontaneous Meds Allergies and Home Medications Allergies Allergy/AdvReac Type Severity Reaction Status Date / Time No Known Allergies Allergy Verified 06/15/23 14:42 Home Medications Medication Instructions Recorded Confirmed Type simethicone 125 mg capsule (Gas 125 mg PO QD-BID PRN abdominal 04/02/23 06/15/23 Rx Relief (simethicone)) distention #90 caps sucralfate 1 gram tablet 1 g PO QACHS bile reflux #90 tabs 04/02/23 06/15/23 Rx Exam Const General: cooperative, comfortable and no acute distress Nutritional Appearance: average body habitus Orientation: alert and oriented x3 HENMT Head: normocephalic and atraumatic Resp Effort & Inspection: normal respiratory effort Auscultation: clear to auscultation bilaterally Cardio Rate: regular rate Rhythm: regular rhythm Heart Sounds: no gallops, no murmurs and no rubs GI Inspection: normal to inspection Palpation: soft, no hepatosplenomegaly and nontender Auscultation: normal bowel sounds Results Imaging Abdomen CT scan report/results: report reviewed and image reviewed CT scan - pelvis: report reviewed and image reviewed Labs 06/15/23 15:05 06/15/23 15:05 Labs: Laboratory Results - last 24 hr 06/15/23 06/15/23 06/15/23 15:05 15:05 15:05 WBC 7.48 RBC 5.27 H Hgb 14.9 Hct 44.9 MCV 85 MCH 28.3 MCHC 33.2 RDW 13.7 Plt Count 270 MPV 10.7 Immature Gran % 0.5 Neutrophils % 66.4 Lymphocytes % 24.2 Monocytes % 5.9 Eosinophils % 2.5 Basophils % 0.5 Nucleated RBC % 0.0 Absolute Neutrophils 4.96 Absolute Lymphocytes 1.81 Absolute Monocytes 0.44 Absolute Eosinophils 0.19 Absolute Basophils 0.04 Sodium 139 Potassium 3.0 L Chloride 101 Carbon Dioxide 28.7 Anion Gap 9.3 BUN 7 Creatinine 0.8 Est GFR (CKD-EPI 2020) 93.70 Glucose 103 Calcium 8.7 Total Bilirubin 5.0 H AST 200 H ALT 604 H Alkaline Phosphatase 193 H Total Protein 7.5 Albumin 3.9 Lipase 33 Urine Color Urine Clarity Urine pH Ur Specific [place] Urine Protein Urine Ketones Urine Blood Urine Nitrite Urine Bilirubin Urine Urobilinogen Ur Leukocyte Esterase Urine RBC Urine WBC Ur Epithelial Cells Urine Crystals Urine Bacteria Urine Casts Urine Mucus Ur Culture Indicated? Urine Glucose 06/15/23 16:10 WBC RBC Hgb Hct MCV MCH MCHC RDW Plt Count MPV Immature Gran % Neutrophils % Lymphocytes % Monocytes % Eosinophils % Basophils % Nucleated RBC % Absolute Neutrophils Absolute Lymphocytes Absolute Monocytes Absolute Eosinophils Absolute Basophils Sodium Potassium Chloride Carbon Dioxide Anion Gap BUN Creatinine Est GFR (CKD-EPI 2020) Glucose Calcium Total Bilirubin AST ALT Alkaline Phosphatase Total Protein Albumin Lipase Urine Color Yellow Urine Clarity Clear Urine pH 7.0 Ur Specific [place] 1.010 Urine Protein Negative Urine Ketones Trace H Urine Blood Small H Urine Nitrite Negative Urine Bilirubin Small H Urine Urobilinogen 0.2 Ur Leukocyte Esterase Negative Urine RBC 3-5 H Urine WBC Negative Ur Epithelial Cells Rare Urine Crystals Negative Urine Bacteria Rare Urine Casts Negative Urine Mucus Negative Ur Culture Indicated? No Urine Glucose Negative Last Vital Signs Temp 98.3 F 06/15/23 14:38 Pulse 79 06/15/23 17:28 Resp 25 H 06/15/23 17:28 BP 139/101 H 06/15/23 17:28 Pulse Ox 98 06/15/23 17:28 PAWSS Have you Been Recently Intoxicated or Drunk Within the Last 30 days?: Yes Have you Ever Experienced Previous Episodes of Alcohol Withdrawal?: No Have you ever Experienced Withdrawal Seizures?: No Have you ever Experienced Delirium Tremens(DT)s?: No Have you ever undergone Alcohol Rehabilitation Treatment (i.e, inpt ot outpatient treatment programs)?: No Have you ever Experienced Blackouts?: No Have you ever Combined Alcohol with other Downers within the last 90 days?: No Have you ever Combined Alcohol with any other Substance of Abuse during the last 90 days?: No Positive Blood Alcohol level on Presentation? [PCS.BAL]: No Evidence of Increased Autonomic Activity (i.e. HR>120, tremor, sweating, agitation, nausea)?: No Result: 1 Time Spent Time spent with Patient: 40-54 minutes Time was spent: preparing to see the patient(eg.review tests), obtaining and/or reviewing separately otained hiistory, ordering medications,tests, procedures, referring, communicating with other health acute care assistant, indepentently interpreting results, counseling the patient and care coordination
[2023-06-15] MEDS: cefTRIAXone 1 GM/50 ML BAG IVPB (18:16)
[2023-06-15] MEDS: MORPHine 4 MG/ML SYR (18:17)
[2023-06-15] MEDS: Bisacodyl 10 MG SUPP PR (19:32)
[2023-06-15] MEDS: Polyethylene Glycol 3350 17 GM PACKET PO (19:33)
[2023-06-15] MEDS: Pantoprazole 40 MG VIAL IVP (19:34)
[2023-06-15 20:29] VITALS: BP 121/82; PULSE 75; RESP 18; TEMP 36.5; O2SAT 96
[2023-06-15] MEDS: Lactated Ringers 1,000 ML 75 ML IV (20:30)
[2023-06-15 20:49] VITALS: BP 121/82; PULSE 75; RESP 16; TEMP 36.5; O2SAT 96
[2023-06-16] VITALS (7 sets, daily range): BP systolic 94–143; BP diastolic 62–89; PULSE 68–86; RESP 16–18; TEMP 36.3–36.9; O2SAT 97–98
[2023-06-16] MEDS: MORPHine 2 MG/ML SYR IVP ×3 (02:45→20:06)
[2023-06-16] MEDS: POTASSIUM CHLORIDE 10 MEQ/100 ML BAG 100 MEQ IV (02:46)
[2023-06-16 07:03] LABS: Abs Immature Grans 0.02 10^3/uL (0.0-0.06); Absolute Basophil Count 0.04 10^3/uL (0.0-0.2); Absolute Lymphocyte Count 1.89 10^3/uL (1.2-3.4); Absolute Monocyte Count 0.46 10^3/uL (0.1-0.8); Absolute Neutrophil Count 3.89 10^3/uL (1.2-6.7); Basophils % 0.6; Eosinophils % 3.1; HGB 14.1 g/dL (11.2-15.7); Immature Grans % 0.3; Lymphocytes % 29.1; MCH 28.7 pg (27.0-33.0); MCHC 33.6 % (32.0-36.0); MCV 85 fL (80-95); MPV 10.9 fL (8.0-11.0); Monocytes % 7.1; Neutrophils % 59.8; Platelet Count 248 10^3/uL (130-400); RBC 4.92 10^6/uL (3.93-5.22); RDW 13.6 % (11.7-14.6); RDW-SD 42.8 fL
[2023-06-16 07:11] LABS: Prothrombin Time 10.3 sec (9.3-11.0)
[2023-06-16 07:18] LABS: ALT 391 U/L (14-59); AST 91 U/L (15-37); Albumin 3.2 g/dL (3.4-5.0); Alkaline Phosphatase 163 U/L (46-116); Anion Gap 8.8 mmol/L (3-11); BUN 4 mg/dL (7-18); Bilirubin, Total 3.1 mg/dL (0.2-1.0); CO2 25.2 mmol/L (21.0-32.0); CREATININE 0.7 mg/dL (0.55-1.02); Calcium 8.1 mg/dL (8.5-10.1); Chloride 107 mmol/L (98-107); Estimated GFR 109.98 (mL/min/1.73m2); Glucose 85 mg/dL (74-106); Potassium 3.7 mmol/L (3.5-5.1); Sodium 141 mmol/L (136-145); Total Protein 6.5 g/dL (6.4-8.2)
[2023-06-16] MEDS: Normal Saline Flush 10 ML SYR IVP (08:40)
[2023-06-16] MEDS: Lactated Ringers 1,000 ML 75 ML IV (10:29)
--- NOTE | 2023-06-16 13:46 | W.PM.PROGNOT ---
Date of Service Date of service: 06/16/23 Time of Service: 08:30 Assessment and Plan Assessment and plan (1) Choledocholithiasis: Status: Acute Assessment and plan: ercp in am supportive care labs in am (2) Epigastric abdominal pain: Status: Acute (3) Gastroesophageal reflux disease: Status: Chronic (4) Hyperlipidemia: Status: Chronic (5) Cigarette smoker: Status: Chronic Subjective Subjective Interval history since last seen: Pt is doing well. no headaches. No CP or SOB. no productive cough. no dysuria. no leg pain or swelling. Pt is feeling good. Still requiring narcotics for pain. She showered and moved her bowels today. She feels hungry. We d/w that she probably will not have her ERCP until tomorrow. And depending on what that shows we will determine timing of surgery. Her labs today are improved. Exam Const Other: PHYSICAL EXAM GENERAL APPEARANCE: Alert, healthy appearance, oriented, x 3,? in no acute distress HYDRATION: Well hydrated HEAD, EYES, EARS, NECK, THROAT: Head is normocephalic, pupils equal, round, reactive to light and accommodation, ocular movement intact, mild jaundice NECK: no lymphadenopathy.? Trachea midline.? Neck supple.? No JVD LUNGS: normal respiration/normal chest excursion. ?Clear to auscultation bilaterally. ?No wheeze. ?HEART: Regular rate and rhythm. no murmurs EXTREMITY: No edema or cyanosis.? no leg pain, redness, swelling.? ABDOMEN: Soft and good bowel sounds. She is having mild occasional right upper quadrant pain and she is requiring morphine for still abdominal pain Objective Last Vital Signs Temp 36.5 C 06/16/23 11:09 Pulse 77 06/16/23 11:09 Resp 16 06/16/23 11:09 BP 110/74 06/16/23 11:09 Pulse Ox 97 06/16/23 11:09 Laboratory Results - last 24 hr 06/15/23 06/15/23 06/15/23 15:05 15:05 15:05 WBC 7.48 RBC 5.27 H Hgb 14.9 Hct 44.9 MCV 85 MCH 28.3 MCHC 33.2 RDW 13.7 Plt Count 270 MPV 10.7 Immature Gran % 0.5 Neutrophils % 66.4 Lymphocytes % 24.2 Monocytes % 5.9 Eosinophils % 2.5 Basophils % 0.5 Nucleated RBC % 0.0 Absolute Neutrophils 4.96 Absolute Lymphocytes 1.81 Absolute Monocytes 0.44 Absolute Eosinophils 0.19 Absolute Basophils 0.04 PT INR Sodium 139 Potassium 3.0 L Chloride 101 Carbon Dioxide 28.7 Anion Gap 9.3 BUN 7 Creatinine 0.8 Est GFR (CKD-EPI 2020) 93.70 Glucose 103 Calcium 8.7 Total Bilirubin 5.0 H AST 200 H ALT 604 H Alkaline Phosphatase 193 H Total Protein 7.5 Albumin 3.9 Lipase 33 Urine Color Urine Clarity Urine pH Ur Specific [place] Urine Protein Urine Ketones Urine Blood Urine Nitrite Urine Bilirubin Urine Urobilinogen Ur Leukocyte Esterase Urine RBC Urine WBC Ur Epithelial Cells Urine Crystals Urine Bacteria Urine Casts Urine Mucus Ur Culture Indicated? Urine Glucose 06/15/23 06/16/23 06/16/23 16:10 06:45 06:45 WBC 6.50 RBC 4.92 Hgb 14.1 Hct 42.0 MCV 85 MCH 28.7 MCHC 33.6 RDW 13.6 Plt Count 248 MPV 10.9 Immature Gran % 0.3 Neutrophils % 59.8 Lymphocytes % 29.1 Monocytes % 7.1 Eosinophils % 3.1 Basophils % 0.6 Nucleated RBC % 0.0 Absolute Neutrophils 3.89 Absolute Lymphocytes 1.89 Absolute Monocytes 0.46 Absolute Eosinophils 0.20 Absolute Basophils 0.04 PT INR Sodium 141 Potassium 3.7 Chloride 107 Carbon Dioxide 25.2 Anion Gap 8.8 BUN 4 L Creatinine 0.7 Est GFR (CKD-EPI 2020) 109.98 Glucose 85 Calcium 8.1 L Total Bilirubin 3.1 H AST 91 H ALT 391 H Alkaline Phosphatase 163 H Total Protein 6.5 Albumin 3.2 L Lipase Urine Color Yellow Urine Clarity Clear Urine pH 7.0 Ur Specific [place] 1.010 Urine Protein Negative Urine Ketones Trace H Urine Blood Small H Urine Nitrite Negative Urine Bilirubin Small H Urine Urobilinogen 0.2 Ur Leukocyte Esterase Negative Urine RBC 3-5 H Urine WBC Negative Ur Epithelial Cells Rare Urine Crystals Negative Urine Bacteria Rare Urine Casts Negative Urine Mucus Negative Ur Culture Indicated? No Urine Glucose Negative 06/16/23 06:45 WBC RBC Hgb Hct MCV MCH MCHC RDW Plt Count MPV Immature Gran % Neutrophils % Lymphocytes % Monocytes % Eosinophils % Basophils % Nucleated RBC % Absolute Neutrophils Absolute Lymphocytes Absolute Monocytes Absolute Eosinophils Absolute Basophils PT 10.3 INR 1.0 Sodium Potassium Chloride Carbon Dioxide Anion Gap BUN Creatinine Est GFR (CKD-EPI 2020) Glucose Calcium Total Bilirubin AST ALT Alkaline Phosphatase Total Protein Albumin Lipase Urine Color Urine Clarity Urine pH Ur Specific [place] Urine Protein Urine Ketones Urine Blood Urine Nitrite Urine Bilirubin Urine Urobilinogen Ur Leukocyte Esterase Urine RBC Urine WBC Ur Epithelial Cells Urine Crystals Urine Bacteria Urine Casts Urine Mucus Ur Culture Indicated? Urine Glucose PAWSS Have you Been Recently Intoxicated or Drunk Within the Last 30 days?: Yes Have you Ever Experienced Previous Episodes of Alcohol Withdrawal?: No Have you ever Experienced Withdrawal Seizures?: No Have you ever Experienced Delirium Tremens(DT)s?: No Have you ever undergone Alcohol Rehabilitation Treatment (i.e, inpt ot outpatient treatment programs)?: No Have you ever Experienced Blackouts?: No Have you ever Combined Alcohol with other Downers within the last 90 days?: No Have you ever Combined Alcohol with any other Substance of Abuse during the last 90 days?: No Positive Blood Alcohol level on Presentation? [PCS.BAL]: No Evidence of Increased Autonomic Activity (i.e. HR>120, tremor, sweating, agitation, nausea)?: No Result: 1 CBC White Blood Count 6.50 10^3/uL (4.4-10.8) 06/16/23 Red Blood Count 4.92 10^6/uL (3.93-5.22) 06/16/23 Hemoglobin 14.1 g/dL (11.2-15.7) 06/16/23 Hematocrit 42.0 % (36.0-46.0) 06/16/23 Mean Corpuscular Volume 85 fL (80-95) 06/16/23 Mean Corpuscular Hemoglobin 28.7 pg (27.0-33.0) 06/16/23 Mean Corpuscular Hemoglobin Concent 33.6 % (32.0-36.0) 06/16/23 Red Cell Distribution Width 13.6 % (11.7-14.6) 06/16/23 Platelet Count 248 10^3/uL (130-400) 06/16/23 Mean Platelet Volume 10.9 fL (8.0-11.0) 06/16/23 Neutrophils % 59.8 06/16/23 Lymphocytes % 29.1 06/16/23 Monocytes % 7.1 06/16/23 Eosinophils % 3.1 06/16/23 Basophils % 0.6 06/16/23 Immature Granulocytes % 0.3 06/16/23 Comprehensive Metabolic Panel Sodium 141 mmol/L (136-145) 06/16/23 06:45 Potassium 3.7 mmol/L (3.5-5.1) 06/16/23 06:45 Chloride 107 mmol/L (98-107) 06/16/23 06:45 Carbon Dioxide 25.2 mmol/L (21.0-32.0) 06/16/23 06:45 BUN 4 mg/dL (7-18) L 06/16/23 06:45 Creatinine 0.7 mg/dL (0.55-1.02) 06/16/23 06:45 Estimated GFR/1.73 m2 >= 60.00 (mL/min/1.73m2) 01/24/22 07:08 Glucose 85 mg/dL (74-106) 06/16/23 06:45 Calcium 8.1 mg/dL (8.5-10.1) L 06/16/23 06:45 Total Bilirubin 3.1 mg/dL (0.2-1.0) H 06/16/23 06:45 ALT 391 U/L (14-59) H 06/16/23 06:45 AST 91 U/L (15-37) H 06/16/23 06:45 Alkaline Phosphatase 163 U/L (46-116) H 06/16/23 06:45 Total Protein 6.5 g/dL (6.4-8.2) 06/16/23 06:45 Albumin 3.2 g/dL (3.4-5.0) L 06/16/23 06:45 Time Spent with Patient Time Spent with Patient: 25-34 minutes Time was spent: preparing to see the patient(eg.review tests), obtaining and/or reviewing separately otained hiistory, ordering medications,tests, procedures, referring, communicating with other health child care attendant, indepentently interpreting results, counseling the patient and care coordination
[2023-06-16] MEDS: ACETAMINOPHEN 1,000 MG/100 ML BTL 400 MG IVPB (15:21)
--- NOTE | 2023-06-16 16:07 | INITIAL_ITS ---
Date of service: 06/16/23 Time of Service: 14:57 Care Management Initial Assmt Initial Assessment REASON FOR HOSPITALIZATION:: Choledocholithiasis PREVIOUS FUNCTIONAL STATUS/SOCIAL/FAMILY SUPPORTS:: Resides with her and children in [place], [place]. 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 She reports that in the summer she also works at the [employer] and [employer]. Independent at baseline in the community. CURRENT FUNCTIONAL STATUS:: Positive affect, pleasant and forthcoming with information. Up independently, clear liquid diet, well informed with excellent health literacy. ADVANCE DIRECTIVES:: Agent appointment; Hayde-mother as agent, Father as alternate. Has patient been provided with info about the portal/API?: Yes Did the patient sign up for the portal?: Yes CODE STATUS:: Full Code INSURANCE COVERAGE / FINANCIAL ISSUES:: BC/BS Out of State ([place]) PRIMARY CARE PHYSICIAN:: Kyra Prince POTENTIAL DISCHARGE NEEDS:: ERCP at [facility]-transport via EMS PATIENT/FAMILY EDUCATION NEEDS:: Review of treatment and discharge planning. ANTICIPATED BARRIERS TO DISCHARGE:: ERCP TRANSPORTATION:: Via private vehicle. PLAN:: NPO after midnight for down and back to [facility] for ERCP anticipated for tomorrow. CM continues to follow. PFSH All Active Problems Choledocholithiasis (Acute) Epigastric abdominal pain (Acute) Gastroesophageal reflux disease (Chronic) Cervicalgia (Chronic) Hyperlipidemia (Chronic) Cigarette smoker (Chronic) Medical History COVID-19 virus infection (~07/2022) Surgical History History of ankle surgery (~02/2011) Right ankle reconstruction and osteophyte excision History of removal of nevus (~2012) 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 Family History Mother Heart disease Atrial fibrillation Hypertension Father Alcohol abuse Depression Heart disease Hyperlipidemia Hypertension Sister Hypertension Maternal Grandfather Heart disease Hypertension Carotid artery disease Valvular heart disease TIA (transient ischemic attack) Maternal Grandmother Depression TIA (transient ischemic attack) Paternal Grandfather Stroke Heart disease Hypertension Hyperlipidemia Paternal Grandmother Depression Social History Smoking/Tobacco Use Status: Current every day Tobacco Type: cigarettes Tobacco: How many years used: 20 Quit status: quit date established (has quit before but restarted. ) Second Hand Exposure: Yes Smoking risk assessment performed?: Yes Alcohol Intake: current Alcohol Intake frequency: a few times a month Alcohol type: beer Drug use: Never Substance use type: does not use Caregiver/Support person: No Household members: significant other and children Housing: house Do you need help understanding health information?: Never Pets and animals: Yes Pets and animals: dog(s) Sexually active: Yes Do you think of yourself as: straight/heterosexual Current gender identity: female What is your relationship status?: living with partner How often do you talk on the phone with friends or family?: three or more times per week How often do you get together with friends or relatives?: twice per week How often do you attend episcopal or sikhism services?: 1-3 times per year Do you belong to any clubs or organized social groups?: no Panel score (0-1 are the most socially isolated patients): 2 What type of physical activity do you participate in: walking Duration: 15-30 minutes/day Frequency: 3-4 times per week Ebony/Episcopalian: Amish Special ebony needs: No Seatbelt use: always Helmet use: Yes Helmet use: always Drive intox or ride w/intox combine driver: No Do you feel safe at home: Yes Do you feel safe in your relationship?: Yes Female Reproductive History Menstrual control method: other (Vasectomy) History History 0 Para Hx # Term Pregnancies Multiple births Hx # Pregnancies Ectopic pregnancies AB induced Hx Number of Living Children AB spontaneous
[2023-06-16] MEDS: Ondansetron 4 MG/2 ML VIAL IVP (20:07)
[2023-06-17] VITALS (7 sets, daily range): BP systolic 94–130; BP diastolic 60–88; PULSE 67–99; RESP 16–20; TEMP 36.2–37; O2SAT 94–99
[2023-06-17] MEDS: MORPHine 2 MG/ML SYR IVP ×4 (06:13→21:32)
[2023-06-17 06:41] LABS: Prothrombin Time 10.2 sec (9.3-11.0)
[2023-06-17 06:51] LABS: ALT 280 U/L (14-59); AST 52 U/L (15-37); Alkaline Phosphatase 151 U/L (46-116); Anion Gap 8.3 mmol/L (3-11); BUN 2 mg/dL (7-18); Bilirubin, Total 2.6 mg/dL (0.2-1.0); CO2 26.7 mmol/L (21.0-32.0); CREATININE 0.8 mg/dL (0.55-1.02); Calcium 8.1 mg/dL (8.5-10.1); Chloride 106 mmol/L (98-107); Glucose 85 mg/dL (74-106); Potassium 3.5 mmol/L (3.5-5.1); Sodium 141 mmol/L (136-145); Total Protein 6.2 g/dL (6.4-8.2)
[2023-06-17] MEDS: Lactated Ringers 1,000 ML 75 ML IV (10:34)
[2023-06-17] MEDS: Normal Saline Flush 10 ML SYR IVP ×3 (13:16→18:28)
--- NOTE | 2023-06-17 16:01 | CMPROGNOTE_ITS ---
Date of service: 06/17/23 Time of Service: 16:01 Care Management Progress Note Progress Note Text Progress Note Text: S/O: Per MD, still awaiting ERCP, Dr. Palmer reports the procedure is scheduled for 1030 tomorrow at [facility]. A: 42 year old female admitted to [facility] 06/15/23 for Choledocholithiasis P: Mayela will transport via EMS, coordinated by Nursing Welder And Fitter for down and back appointment at [facility] for ERCP. CM continues to follow.
--- NOTE | 2023-06-17 16:01 | PDOC.CMPRO ---
Date of service: 06/17/23 Time of Service: 16:01 Care Management Progress Note Progress Note Text Progress Note Text: S/O: Per MD, still awaiting ERCP, Dr. Palmer reports the procedure is scheduled for 1030 tomorrow at [facility]. A: 42 year old female admitted to [facility] 06/15/23 for Choledocholithiasis P: Mayela will transport via EMS, coordinated by Nursing Lump Roller for down and back appointment at [facility] for ERCP. CM continues to follow.
--- NOTE | 2023-06-17 16:26 | PHA.REVIEW2 ---
Pharmacy Admission Review - Admission Clinical Review (Last Reviewed 06/15/23 @ 19:50 by Astrid Palmer MD) Choledocholithiasis (Acute) Epigastric abdominal pain (Acute) No Known Allergies Allergy (Verified 06/15/23 14:42) Resuscitation Status Full Code Height 5 ft 1 in Weight 63.5 kg - Renal Dosing Renal Dosing: BUN 2 mg/dL (7-18) L 06/17/23 05:55 Creatinine 0.8 mg/dL (0.55-1.02) 06/17/23 05:55 Medications needing adjustments: Reviewed List of meds needing interventions: eCrCl 77 ml/min - Anticoagulation Anticoagulation: Hgb 14.1 g/dL (11.2-15.7) 06/16/23 06:45 Hct 42.0 % (36.0-46.0) 06/16/23 06:45 Plt Count 248 10^3/uL (130-400) 06/16/23 06:45 INR 1.0 (0.9-1.1) 06/17/23 05:55 Creatinine 0.8 mg/dL (0.55-1.02) 06/17/23 05:55 DVT Prophylaxis: N/A Therapeutic Anticoagulation: N/A - Opiate Usage Evaluate Pain Scale/Pains Meds: Reviewed (morphine 2mg IVP prn) Scheduled Bowel Reg ordered if on Opiates?: No (+ BMs) - Relevant Labs Sodium 141 mmol/L (136-145) 06/17/23 05:55 Potassium 3.5 mmol/L (3.5-5.1) 06/17/23 05:55 Chloride 106 mmol/L (98-107) 06/17/23 05:55 Electrolytes, C-Reactive P, ESR: Reviewed - DM Control DM Control: Glucose 85 mg/dL (74-106) 06/17/23 05:55 DM Control: N/A - Cardiac Review BP, HR, EF%: N/A - Qtc Review QTc: N/A - IV to PO Switch IV Medications: Reviewed - Home Meds Home Med List reviewed: Reviewed - Current meds Current Medication Order Review: Reviewed
--- NOTE | 2023-06-17 16:46 | W.PM.PROGNOT ---
Date of Service Date of service: 06/17/23 Time of Service: 16:46 Assessment and Plan Assessment and plan (1) Choledocholithiasis: Status: Acute Assessment and plan: ERCP tomorrow at [facility] at 1030. Once she is back here we will recheck labs and then we will schedule her for surgery on Friday. Subjective Subjective Interval history since last seen: Followed up with Mayela this afternoon regarding the plan. I was able to talk to gastroenterology again down to [facility] and they do have a spot for her tomorrow. The plan is for her to go down tomorrow at 9 for the procedure at 1030. She will then come back to us and then we will plan surgery on Friday more than likely. She is on full liquids today until midnight and then nothing to eat until she comes back from her procedure. She has been afebrile she still has some discomfort and is taking morphine every so often. Bilirubin although a little bit lower than yesterday is still elevated at 2.7. Objective Last Vital Signs Temp 97.5 F L 06/17/23 15:14 Pulse 67 06/17/23 15:14 Resp 20 06/17/23 15:14 BP 124/85 06/17/23 15:14 Pulse Ox 97 06/17/23 15:14 Laboratory Results - last 24 hr 06/17/23 06/17/23 05:55 05:55 PT 10.2 INR 1.0 Sodium 141 Potassium 3.5 Chloride 106 Carbon Dioxide 26.7 Anion Gap 8.3 BUN 2 L Creatinine 0.8 Est GFR (CKD-EPI 2020) 93.70 Glucose 85 Calcium 8.1 L Total Bilirubin 2.6 H AST 52 H ALT 280 H Alkaline Phosphatase 151 H Total Protein 6.2 L Albumin 3.0 L PAWSS Have you Been Recently Intoxicated or Drunk Within the Last 30 days?: Yes Have you Ever Experienced Previous Episodes of Alcohol Withdrawal?: No Have you ever Experienced Withdrawal Seizures?: No Have you ever Experienced Delirium Tremens(DT)s?: No Have you ever undergone Alcohol Rehabilitation Treatment (i.e, inpt ot outpatient treatment programs)?: No Have you ever Experienced Blackouts?: No Have you ever Combined Alcohol with other Downers within the last 90 days?: No Have you ever Combined Alcohol with any other Substance of Abuse during the last 90 days?: No Positive Blood Alcohol level on Presentation? [PCS.BAL]: No Evidence of Increased Autonomic Activity (i.e. HR>120, tremor, sweating, agitation, nausea)?: No Result: 1 Time Spent with Patient Time Spent with Patient: <25 minutes Time was spent: other
[2023-06-17] MEDS: Pantoprazole 40 MG VIAL IVP (17:53)
[2023-06-18] MEDS: MORPHine 2 MG/ML SYR IVP ×2 (02:10→20:58)
[2023-06-18 07:15] VITALS: BP 108/73; PULSE 75; TEMP 36.5; O2SAT 95
[2023-06-18 07:16] LABS: Abs Immature Grans 0.01 10^3/uL (0.0-0.06); Absolute Basophil Count 0.03 10^3/uL (0.0-0.2); Absolute Eosinophil Count 0.26 10^3/uL (0.0-0.7); Absolute Lymphocyte Count 1.99 10^3/uL (1.2-3.4); Absolute Monocyte Count 0.52 10^3/uL (0.1-0.8); Absolute Neutrophil Count 3.07 10^3/uL (1.2-6.7); Basophils % 0.5; Eosinophils % 4.4; HCT 41.6 % (36.0-46.0); HGB 13.8 g/dL (11.2-15.7); Immature Grans % 0.2; Lymphocytes % 33.8; MCH 28.2 pg (27.0-33.0); MCHC 33.2 % (32.0-36.0); MCV 85 fL (80-95); MPV 10.9 fL (8.0-11.0); Monocytes % 8.8; Neutrophils % 52.3; Platelet Count 237 10^3/uL (130-400); RDW 13.6 % (11.7-14.6); RDW-SD 42.3 fL; WBC 5.88 10^3/uL (4.4-10.8)
--- NOTE | 2023-06-18 07:30 | PGE_ITS ---
Date of Service Date of service: 06/18/23 Time of Service: 07:30 Assessment and Plan Assessment and plan (1) Choledocholithiasis: Status: Acute Assessment and plan: Mayela is doing well this morning. She did have abdominal point yesterday after eating some ice cream. She is n.p.o. today for her ERCP which is scheduled for 1030 down at [facility]. She will be taken down an ambulance and then brought back. Plan is for then to have her undergo a laparoscopic cholecystectomy most likely on Friday. Subjective Subjective Interval history since last seen: Mayela is doing well this morning. She did have some ice cream last night which caused quite a bit of pain. She has had no fevers overnight. Her labs are pending this morning. Exam Const General: cooperative, comfortable and no acute distress Nutritional Appearance: average body habitus Orientation: alert and oriented x3 HENMT Head: normocephalic and atraumatic Resp Effort & Inspection: normal respiratory effort Auscultation: clear to auscultation bilaterally Cardio Rate: regular rate Rhythm: regular rhythm GI Palpation: soft, no hepatosplenomegaly and tender in the RUQ Objective Last Vital Signs Temp 97.7 F 06/18/23 07:15 Pulse 75 06/18/23 07:15 Resp 16 06/17/23 23:10 BP 108/73 06/18/23 07:15 Pulse Ox 95 06/18/23 07:15 Laboratory Results - last 24 hr 06/18/23 06:20 WBC 5.88 RBC 4.90 Hgb 13.8 Hct 41.6 MCV 85 MCH 28.2 MCHC 33.2 RDW 13.6 Plt Count 237 MPV 10.9 Immature Gran % 0.2 Neutrophils % 52.3 Lymphocytes % 33.8 Monocytes % 8.8 Eosinophils % 4.4 Basophils % 0.5 Nucleated RBC % 0.0 Absolute Neutrophils 3.07 Absolute Lymphocytes 1.99 Absolute Monocytes 0.52 Absolute Eosinophils 0.26 Absolute Basophils 0.03 PAWSS Have you Been Recently Intoxicated or Drunk Within the Last 30 days?: Yes Have you Ever Experienced Previous Episodes of Alcohol Withdrawal?: No Have you ever Experienced Withdrawal Seizures?: No Have you ever Experienced Delirium Tremens(DT)s?: No Have you ever undergone Alcohol Rehabilitation Treatment (i.e, inpt ot outpatient treatment programs)?: No Have you ever Experienced Blackouts?: No Have you ever Combined Alcohol with other Downers within the last 90 days?: No Have you ever Combined Alcohol with any other Substance of Abuse during the last 90 days?: No Positive Blood Alcohol level on Presentation? [PCS.BAL]: No Evidence of Increased Autonomic Activity (i.e. HR>120, tremor, sweating, agitation, nausea)?: No Result: 1 Time Spent with Patient Time Spent with Patient: <25 minutes Time was spent: counseling the patient
[2023-06-18 07:58] LABS: ALT 272 U/L (14-59); AST 89 U/L (15-37); Albumin 3.2 g/dL (3.4-5.0); Alkaline Phosphatase 164 U/L (46-116); Anion Gap 9.2 mmol/L (3-11); BUN 3 mg/dL (7-18); Bilirubin, Total 3.2 mg/dL (0.2-1.0); CO2 26.8 mmol/L (21.0-32.0); CREATININE 0.8 mg/dL (0.55-1.02); Calcium 8.4 mg/dL (8.5-10.1); Chloride 106 mmol/L (98-107); Glucose 82 mg/dL (74-106); Magnesium 1.9 mg/dL (1.8-2.4); Potassium 3.4 mmol/L (3.5-5.1); Sodium 142 mmol/L (136-145); Total Protein 6.6 g/dL (6.4-8.2)
--- NOTE | 2023-06-18 08:54 | CMPROGNOTE_ITS ---
Date of service: 06/18/23 Time of Service: 08:54 Care Management Progress Note Progress Note Text Progress Note Text: S/O: Per Dr. Palmer, Mayela will have a down and back appointment for an ERCP at 1030 at [facility]. CM continues to follow. A: 42 year old female admitted to [facility] 06/15/23 for Choledocholithiasis P: Mayela will transport via EMS, coordinated by Nursing Perinatal Director for down and back appointment at [facility] for ERCP. CM continues to follow.
--- NOTE | 2023-06-18 08:54 | PDOC.CMPRO ---
Date of service: 06/18/23 Time of Service: 08:54 Care Management Progress Note Progress Note Text Progress Note Text: S/O: Per Dr. Palmer, Mayela will have a down and back appointment for an ERCP at 1030 at [facility]. CM continues to follow. A: 42 year old female admitted to [facility] 06/15/23 for Choledocholithiasis P: Mayela will transport via EMS, coordinated by Nursing Motion Picture Commentator for down and back appointment at [facility] for ERCP. CM continues to follow.
[2023-06-18 14:51] VITALS: BP 119/81; PULSE 68; RESP 16; TEMP 37; O2SAT 95
--- NOTE | 2023-06-18 16:26 | PGE_ITS ---
Date of Service Date of service: 06/18/23 Time of Service: 16:26 Assessment and Plan Assessment and plan (1) Choledocholithiasis: Status: Acute Assessment and plan: Remedios is doing well. There is no report from [facility] so I will try to find it in their system. I will give her a low-fat diet for today and tomorrow and plan on surgery on Friday at 1230. I will recheck labs make sure that she does not have pancreatitis after her ERCP. Subjective Subjective Interval history since last seen: Remedios is back from [facility]. She underwent her ERCP procedure. She states that they told her that they removed 1 stone and sludge. She is feeling well. She is feeling hungry. She is got a little bit of a sore throat but otherwise feels fine. Her vitals are stable. Exam Resp Effort & Inspection: normal respiratory effort Objective Last Vital Signs Temp 98.6 F 06/18/23 14:51 Pulse 68 06/18/23 14:51 Resp 16 06/18/23 14:51 BP 119/81 06/18/23 14:51 Pulse Ox 95 06/18/23 14:51 Laboratory Results - last 24 hr 06/18/23 06/18/23 06:20 06:20 WBC 5.88 RBC 4.90 Hgb 13.8 Hct 41.6 MCV 85 MCH 28.2 MCHC 33.2 RDW 13.6 Plt Count 237 MPV 10.9 Immature Gran % 0.2 Neutrophils % 52.3 Lymphocytes % 33.8 Monocytes % 8.8 Eosinophils % 4.4 Basophils % 0.5 Nucleated RBC % 0.0 Absolute Neutrophils 3.07 Absolute Lymphocytes 1.99 Absolute Monocytes 0.52 Absolute Eosinophils 0.26 Absolute Basophils 0.03 Sodium 142 Potassium 3.4 L Chloride 106 Carbon Dioxide 26.8 Anion Gap 9.2 BUN 3 L Creatinine 0.8 Est GFR (CKD-EPI 2020) 93.70 Glucose 82 Calcium 8.4 L Magnesium 1.9 Total Bilirubin 3.2 H AST 89 H ALT 272 H Alkaline Phosphatase 164 H Total Protein 6.6 Albumin 3.2 L PAWSS Have you Been Recently Intoxicated or Drunk Within the Last 30 days?: Yes Have you Ever Experienced Previous Episodes of Alcohol Withdrawal?: No Have you ever Experienced Withdrawal Seizures?: No Have you ever Experienced Delirium Tremens(DT)s?: No Have you ever undergone Alcohol Rehabilitation Treatment (i.e, inpt ot outpatient treatment programs)?: No Have you ever Experienced Blackouts?: No Have you ever Combined Alcohol with other Downers within the last 90 days?: No Have you ever Combined Alcohol with any other Substance of Abuse during the last 90 days?: No Positive Blood Alcohol level on Presentation? [PCS.BAL]: No Evidence of Increased Autonomic Activity (i.e. HR>120, tremor, sweating, agitation, nausea)?: No Result: 1 Time Spent with Patient Time Spent with Patient: <25 minutes Time was spent: counseling the patient
[2023-06-18] MEDS: Pantoprazole 40 MG VIAL IVP (17:25)
[2023-06-18] MEDS: Normal Saline Flush 10 ML SYR IVP (17:25)
[2023-06-18 19:51] VITALS: BP 107/74; PULSE 80; RESP 19; TEMP 37.1; O2SAT 98
[2023-06-18] MEDS: Ondansetron 4 MG/2 ML VIAL IVP (20:59)
[2023-06-18] MEDS: Melatonin 3 MG TAB PO (20:59)
[2023-06-18] MEDS: Milk of Magnesia 30 ML CUP PO (20:59)
[2023-06-19 07:26] VITALS: BP 112/82; PULSE 79; RESP 17; TEMP 36.7; O2SAT 99
[2023-06-19 07:31] LABS: HGB 13.8 g/dL (11.2-15.7); MCH 27.8 pg (27.0-33.0); MCHC 32.9 % (32.0-36.0); MCV 85 fL (80-95); Platelet Count 269 10^3/uL (130-400); RBC 4.96 10^6/uL (3.93-5.22); RDW 13.7 % (11.7-14.6); RDW-SD 42.5 fL
[2023-06-19 07:51] LABS: ALT 270 U/L (14-59); AST 94 U/L (15-37); Albumin 3.1 g/dL (3.4-5.0); Alkaline Phosphatase 169 U/L (46-116); Anion Gap 9.8 mmol/L (3-11); BUN 10 mg/dL (7-18); Bilirubin, Total 1.5 mg/dL (0.2-1.0); CO2 27.2 mmol/L (21.0-32.0); CREATININE 0.8 mg/dL (0.55-1.02); Calcium 8.2 mg/dL (8.5-10.1); Chloride 106 mmol/L (98-107); Glucose 97 mg/dL (74-106); Potassium 3.1 mmol/L (3.5-5.1); Sodium 143 mmol/L (136-145); Total Protein 6.6 g/dL (6.4-8.2)
[2023-06-19] MEDS: ACETAMINOPHEN 1,000 MG/100 ML BTL 400 MG IVPB (11:03)
[2023-06-19 11:11] VITALS: BP 108/76; PULSE 70; RESP 17; TEMP 37; O2SAT 100
[2023-06-19] MEDS: Polyethylene Glycol 3350 17 GM PACKET PO (14:44)
[2023-06-19 15:17] VITALS: BP 121/87; PULSE 78; RESP 17; TEMP 36.8; O2SAT 99
--- NOTE | 2023-06-19 16:21 | W.PM.PROGNOT ---
Date of Service Date of service: 06/19/23 Time of Service: 16:21 Assessment and Plan Assessment and plan (1) Choledocholithiasis: Status: Acute Assessment and plan: S/p ERCP at [facility]. Abdominal pain has resolved. No Nausea or vomiting. Low fat diet; NPO after midnight on 06/20 for planned lap padmini scheduled for Friday. Activity as tolerated. Encouraged ambulation and sitting in the chair Bilirubin is trending downward Lipase was normal Laproscopic Cholecystectomy tomorrow. agree w/ above. pt having issues w/ hemorrhoids and bleeding due to constipation from narcotics. Miramax daily hydrocortisone cream and tux pads Subjective Subjective Interval history since last seen: Patient reports that she is feeling better today. She is awaiting breakfast and is eager to have her gallbladder removed on Friday. She denies any nausea or vomiting at this time. Exam Const General: cooperative, healthy appearing and comfortable Orientation: alert and oriented x3 Resp Effort & Inspection: normal respiratory effort, no audible wheezes and no cough Objective Last Vital Signs Temp 36.8 C 06/19/23 15:17 Pulse 78 06/19/23 15:17 Resp 17 06/19/23 15:17 BP 121/87 06/19/23 15:17 Pulse Ox 99 06/19/23 15:17 Laboratory Results - last 24 hr 06/19/23 06/19/23 06:15 06:15 WBC 10.60 RBC 4.96 Hgb 13.8 Hct 42.0 MCV 85 MCH 27.8 MCHC 32.9 RDW 13.7 Plt Count 269 MPV 11.0 Sodium 143 Potassium 3.1 L Chloride 106 Carbon Dioxide 27.2 Anion Gap 9.8 BUN 10 Creatinine 0.8 Est GFR (CKD-EPI 2020) 93.70 Glucose 97 Calcium 8.2 L Total Bilirubin 1.5 H AST 94 H ALT 270 H Alkaline Phosphatase 169 H Total Protein 6.6 Albumin 3.1 L PAWSS Have you Been Recently Intoxicated or Drunk Within the Last 30 days?: Yes Have you Ever Experienced Previous Episodes of Alcohol Withdrawal?: No Have you ever Experienced Withdrawal Seizures?: No Have you ever Experienced Delirium Tremens(DT)s?: No Have you ever undergone Alcohol Rehabilitation Treatment (i.e, inpt ot outpatient treatment programs)?: No Have you ever Experienced Blackouts?: No Have you ever Combined Alcohol with other Downers within the last 90 days?: No Have you ever Combined Alcohol with any other Substance of Abuse during the last 90 days?: No Positive Blood Alcohol level on Presentation? [PCS.BAL]: No Evidence of Increased Autonomic Activity (i.e. HR>120, tremor, sweating, agitation, nausea)?: No Result: 1 Time Spent with Patient Time Spent with Patient: <25 minutes Time was spent: preparing to see the patient(eg.review tests), obtaining and/or reviewing separately otained hiistory, ordering medications,tests, procedures, referring, communicating with other health healthcare corporate account director, indepentently interpreting results, counseling the patient and care coordination
[2023-06-19] MEDS: Pantoprazole 40 MG VIAL IVP (17:22)
[2023-06-19 19:16] VITALS: BP 139/92; PULSE 74; RESP 19; TEMP 36.9; O2SAT 100
[2023-06-19] MEDS: Ondansetron 4 MG/2 ML VIAL IVP (21:57)
[2023-06-19] MEDS: MORPHine 2 MG/ML SYR IVP (21:57)
[2023-06-19] MEDS: Melatonin 3 MG TAB PO (21:57)
[2023-06-20] VITALS (11 sets, daily range): BP systolic 110–145; BP diastolic 78–89; PULSE 67–77; RESP 10–27; TEMP 36.5–36.9; O2SAT 95–100; BMI 26.4
[2023-06-20] MEDS: Lactated Ringers 1,000 ML 80 ML IV
[2023-06-20 07:10] LABS: ALT 267 U/L (14-59); AST 103 U/L (15-37); Alkaline Phosphatase 137 U/L (46-116); Anion Gap 6.7 mmol/L (3-11); BUN 7 mg/dL (7-18); CO2 28.3 mmol/L (21.0-32.0); CREATININE 0.7 mg/dL (0.55-1.02); Chloride 107 mmol/L (98-107); Estimated GFR 109.98 (mL/min/1.73m2); Glucose 80 mg/dL (74-106); Potassium 3.6 mmol/L (3.5-5.1); Sodium 142 mmol/L (136-145); Total Protein 6.3 g/dL (6.4-8.2)
--- NOTE | 2023-06-20 09:05 | PGE_ITS ---
Date of Service Date of service: 06/20/23 Time of Service: 09:06 Assessment and Plan Assessment and plan (1) Choledocholithiasis: Status: Acute Assessment and plan: S/p ERCP at [facility]. Abdominal pain has resolved. No Nausea or vomiting. Currently n.p.o. awaiting her scheduled laparoscopic cholecystectomy later today. Activity as tolerated. Encouraged ambulation and sitting in the chair Tentative discharge tomorrow, to ensure that her pain is under control and she is able to tolerate a low-fat diet. Pastient seen and examined in [facility] Mayela is doing well. Her bilirubin is back down to normal. She has been n.p.o. since midnight. I reviewed the procedure in detail with her using a pamphlet with pictures. We reviewed the pathophysiology of cholecystitis and choledocholithiasis. We also reviewed all the risks, benefits and complications. After conversation the patient had a good understanding of the possible complications as well as the procedure itself. Risks, benefits, complications were reviewed with the patient in the office. Complications include but are not limited to bleeding, infection, injury to stomach, small bowel and large bowel, injury to the pancreas, injury to the common bile duct necessitating drainage and referral to tertiary center for repair, bile leak, adverse reactions to the medications, complications of intubation including a sore throat or injury to the uvula, [place], stroke and even . Questions were entertained and answered to her satisfaction and she wished to proceed. No guarantees were given or implied. Proceed with laparoscopic cholecystectomy, possible intraoperative cholangiogram, possible open cholecystectomy. Likely home later today if she is able to tolerate some clears and her pain is well controlled Subjective Subjective Interval history since last seen: Patient is eager to have her surgery today. She understands that she needs to be n.p.o. She states that she had some abdominal pain yesterday but is feeling okay this morning. Exam Const General: cooperative, healthy appearing and comfortable Orientation: alert and oriented x3 Resp Effort & Inspection: normal respiratory effort, no audible wheezes and no cough Objective Last Vital Signs Temp 36.7 C 06/20/23 07:42 Pulse 75 06/20/23 07:42 Resp 16 06/20/23 03:08 BP 114/78 06/20/23 07:42 Pulse Ox 97 06/20/23 07:42 Laboratory Results - last 24 hr 06/20/23 06:12 Sodium 142 Potassium 3.6 Chloride 107 Carbon Dioxide 28.3 Anion Gap 6.7 BUN 7 Creatinine 0.7 Est GFR (CKD-EPI 2020) 109.98 Glucose 80 Calcium 8.0 L Total Bilirubin 1.0 AST 103 H ALT 267 H Alkaline Phosphatase 137 H Total Protein 6.3 L Albumin 3.0 L PAWSS Have you Been Recently Intoxicated or Drunk Within the Last 30 days?: Yes Have you Ever Experienced Previous Episodes of Alcohol Withdrawal?: No Have you ever Experienced Withdrawal Seizures?: No Have you ever Experienced Delirium Tremens(DT)s?: No Have you ever undergone Alcohol Rehabilitation Treatment (i.e, inpt ot outpatient treatment programs)?: No Have you ever Experienced Blackouts?: No Have you ever Combined Alcohol with other Downers within the last 90 days?: No Have you ever Combined Alcohol with any other Substance of Abuse during the last 90 days?: No Positive Blood Alcohol level on Presentation? [PCS.BAL]: No Evidence of Increased Autonomic Activity (i.e. HR>120, tremor, sweating, agitation, nausea)?: No Result: 1 Time Spent with Patient Time Spent with Patient: <25 minutes Time was spent: indepentently interpreting results, counseling the patient and care coordination
--- NOTE | 2023-06-20 11:24 | W.ANESPRE ---
General Info Date of Service Date Performed: 06/20/23 Height: 5 ft 1 in Weight: 63.5 kg Body Mass Index (BMI): 26.4 Surgical Procedure: Operation Date: 06/20/23 12:40 Proposed Procedure Side Surgeon p Cholecystectomy Laparoscopic Cholangio Astrid Palmer MD Meds Allergies and Home Medications Allergies Allergy/AdvReac Type Severity Reaction Status Date / Time No Known Allergies Allergy Verified 06/15/23 14:42 Home Medication Medication Instructions Recorded simethicone 125 mg capsule (Gas 125 mg PO QD-BID PRN abdominal 04/02/23 Relief (simethicone)) distention #90 caps sucralfate 1 gram tablet 1 g PO QACHS bile reflux #90 tabs 04/02/23 Current Visit Medications: Current Medications Generic Name Dose Route Start Last Admin Trade Name Freq PRN Reason Stop Dose Admin Hydrocortisone 30 gm 06/19/23 18:11 Hydrocortisone 2.5% Cr 30 Gm Tube TP TID PRN PRN Sodium Chloride 500 mls @ 0 mls/hr 06/15/23 17:23 Saline 500ml Bag IV PRN PRN As Directed Ringer's Solution 1,000 mls @ 80 mls/hr 06/20/23 01:00 06/20/23 00:00 IV 80 mls/hr INFUSION FAYE Administration Cefazolin Sodium/Dextrose 2 gm in 50 mls @ 100 mls/hr 06/20/23 11:00 Ancef Duplex IVPB TECHNICAL PROJECT COORDINATOR FAYE Acetaminophen 1,000 mg in 100 mls @ 400 mls/hr 06/20/23 07:25 Ofirmev IVPB Q6H PRN PRN Abdominal Pain IV Miscellaneous Supplies 1 each 06/15/23 17:30 Iv Access IV DIRECTED FAYE Melatonin 3 mg 06/20/23 07:31 Melatonin 3 Mg Tab PO HS PRN PRN ins Morphine Sulfate 2 mg 06/15/23 17:23 06/19/23 21:57 Morphine 2 Mg/Ml Syr IVP 2 mg Q1H PRN PRN Administration Ondansetron HCl 4 mg 06/15/23 17:23 06/19/23 21:57 Ondansetron 4 Mg/2 Ml Vial IVP 4 mg Q4H PRN PRN Administration Oxycodone HCl 5 mg 06/19/23 18:13 Oxycodone 5 Mg Tab PO Q6H PRN PRN Pantoprazole Sodium 40 mg 06/20/23 18:00 Pantoprazole 40 Mg Vial IVP Q24H FAYE Polyethylene Glycol 17 gm 06/20/23 08:30 06/20/23 08:34 Polyethylene Glycol 3350 17 Gm Packet PO Not Given DAILY FAYE Sodium Chloride 0 ml 06/15/23 16:21 06/18/23 17:25 Normal Saline Flush 10 Ml Syr IVP 20 ml PRN PRN Administration Witch [place]/Glycerin 100 each 06/19/23 18:11 [place]/Glycerin 100 Each Box [place] PRN PRN PFSH Active Problems Active Problems: Problem Status Onset Code Choledocholithiasis K80.50 Epigastric abdominal pain R10.13 Gastroesophageal reflux disease K21.9 Cervicalgia M54.2 Hyperlipidemia E78.5 Cigarette smoker F17.210 Medical History Medical History COVID-19 virus infection (~07/2022) Surgical History Surgical History History of ankle surgery (~02/2011) Right ankle reconstruction and osteophyte excision History of removal of nevus (~2012) 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 Tobacco Smoking/Tobacco Use Status: Current every day Tobacco Type: cigarettes Passive smoking exposure: Yes Second hand exposure: Yes Alcohol Alcohol Intake: current Alcohol intake frequency: a few times a month Alcohol type: beer Substance Use Substance use: Never Substance use type: does not use Prental History History 0 Para Hx # Term Pregnancies Multiple births Hx # Pregnancies Ectopic pregnancies AB induced Hx Number of Living Children AB spontaneous Vital Signs and Lab Results Vital Signs Most Recent Vital Signs in EMR: Most Recent Vital Signs Temp Pulse Resp BP Pulse Ox 36.9 C 67 16 112/78 97 06/20/23 11:08 06/20/23 11:08 06/20/23 03:08 06/20/23 11:08 06/20/23 11:08 Point of Care Results Point of Care Results: POC- Test(urine) Negative 06/15/23 16:15 Lab Results 06/19/23 06:15 06/20/23 06:12 Blood Type / Crossmatch: No Data to Display Complete Blood Count: White Blood Count 10.60 10^3/uL (4.4-10.8) 06/19/23 06:15 Red Blood Count 4.96 10^6/uL (3.93-5.22) 06/19/23 06:15 Hemoglobin 13.8 g/dL (11.2-15.7) 06/19/23 06:15 Hematocrit 42.0 % (36.0-46.0) 06/19/23 06:15 Platelet Count 269 10^3/uL (130-400) 06/19/23 06:15 Complete Metabolic Panel: Sodium 142 mmol/L (136-145) 06/20/23 06:12 Potassium 3.6 mmol/L (3.5-5.1) 06/20/23 06:12 Chloride 107 mmol/L (98-107) 06/20/23 06:12 Carbon Dioxide 28.3 mmol/L (21.0-32.0) 06/20/23 06:12 BUN 7 mg/dL (7-18) 06/20/23 06:12 Creatinine 0.7 mg/dL (0.55-1.02) 06/20/23 06:12 Est GFR (CKD-EPI 2020) 109.98 (mL/min/1.73m2) 06/20/23 06:12 Magnesium 1.9 mg/dL (1.8-2.4) 06/18/23 06:20 Calcium 8.0 mg/dL (8.5-10.1) L 06/20/23 06:12 Albumin 3.0 g/dL (3.4-5.0) L 06/20/23 06:12 Glucose 80 mg/dL (74-106) 06/20/23 06:12 Liver Function Panel: Alanine Aminotransferase (ALT/SGPT) 267 U/L (14-59) H 06/20/23 06:12 Aspartate Amino Transf (AST/SGOT) 103 U/L (15-37) H 06/20/23 06:12 Coagulation Panel: INR International Normalized Ratio 1.0 (0.9-1.1) 06/17/23 05:55 Prothrombin Time 10.2 sec (9.3-11.0) 06/17/23 05:55 Cardiac Panel: No Data to Display Arterial Blood Gas: No Data to Display Venous Blood Gas: No Data to Display Pancreas Panel: Lipase 33 U/L (16-77) 06/15/23 15:05 Thyroid Panel: No Data to Display Infectious Disease: No Data to Display Blood Cultures: No Data to Display Toxicology Panel: No Data to Display Panel: No Data to Display Anesthesia Assessment and Plan Anesthesia History Personal History: No History of Anesthesia Complications Family History: No Family History of Anesthesia Complications Exercise Tolerance Exercise Tolerance: Metabolic Equivalents>4 Pertinent Negatives Pertinent Negatives: No Major Cardiovascular Symptoms or Complaints, No Major Pulmonary Symptoms or Complaints and No History of CVA/TIA Cardiac & Pulmonary Exam Cardiac Exam: Normal S1/S2 Heart Sounds Pulmonary Exam: Clear Bilateral Breath Sounds Implantable Cardiac Device Does patient have a Pacemaker or an ICD?: No Airway Exam Known Difficult Airway: No Mallampati Class: 2 Mouth Opening: Normal (> 3cm) Thyromental Distance: Greater than 3 cm Neck Range of Motion: Full ROM Neck Circumference: Normal Teeth Condition: Normal Dentition ASA Classification ASA Score: ASA 2 Emergency Case?: No NPO Status NPO Status: NPO Clears >2 hours, Solids >8 hours Status Status: Negative HCG (06/15 in ER) Anesthesia Plan Resuscitation Status: Full Code Anesthesia Technique: General Anesthesia Airway Planned: Endotracheal Tube Monitors Used: Standard Monitors
[2023-06-20] MEDS: Lactated Ringers 1,000 ML 30 ML IV (12:47)
[2023-06-20] MEDS: ceFAZolin 2 GM/50 ML BAG IVPB (13:00)
--- NOTE | 2023-06-20 13:23 | GB_PTH ---
PATIENT: Mayela Power LOC: U#:[id number] AGE/SX: 42/F ROOM: 216 RE06/15/[address]: Astrid Palmer MD : 1980 BED: A DIS: 06/20/2023 SPEC #: [id number] RECD: 06/20/23 18:23 STATUS: NANI REQ #: [id number] MARITZA: 06/20/23 13:[address]: Astrid Palmer DEPT: Surgical Specimen RECD BY: Mariam De Santiago ENTERED: 06/20/23 18:23 SP TYPE: GB OTHR DR: MELISSA Nash Tissues: 1 - GALLBLADDER Procedures: GROSS AND MICRO LEVEL 3 Comments: [id number]
[2023-06-20] MEDS: Bupivacaine 0.25% Pres-Free 30 ML VIAL (13:26)
--- NOTE | 2023-06-20 13:41 | ROE_ITS ---
Date of service: 06/20/23 Time of Service: 13:42 Operative Note Operative Note DATE OF PROCEDURE: 06/20/23 PRE-OP DIAGNOSIS: Choledocholithiasis POST-OP DIAGNOSIS: same PROCEDURE: Laparoscopic Cholecystectomy SURGEON: Astrid Palmer UNDERCOLLAR BASTER: Louise Baer ANESTHESIA TYPE: Local By Surgeon and General LMA/ETT Refer to Anesthesia Record ESTIMATED BLOOD LOSS: 25 PATHOLOGY: other (Gallbladder) COMPLICATIONS: None Patient was transported to: PACU Patient's condition: stable Indications: Mayela is a pleasant 42-year-old female who was admitted on Friday night with choledocholithiasis and an elevated total bilirubin. She was unable to go down for an ERCP until Friday. They were able to remove 1 stone and sludge from her common bile duct. Her labs are coming back down to normal. Her total bilirubin was normal today. We reviewed the risks, benefits and complications of the procedure. I reviewed the procedure in detail using a pamphlet with pictures. We reviewed the pathophysiology of choledocholithiasis and cholecystitis. We reviewed an intraoperative cholangiogram and the possibility of having to do it open. After conversation the patient had a good understanding of the procedure and its possible complications. And she wished to proceed. Findings: Mild inflammation between the gallbladder and the liver. Procedure Description: After informed consent was obtained the patient was brought to the operating room, placed in a supine position and monitors were applied. SCDs were applied to her lower extremities and she was placed under general anesthesia and intubated without difficulty. Her abdomen was then prepped and draped in a sterile fashion using ChloraPrep. At this point a timeout was done and the patient's name, date of , procedure type, allergies to medications, metal in her body, antibiotic and DVT prophylaxis, and fire risk was assessed. At this point 0.25% Bupivocaine was injected just above the umbilicus into the dermis and subcutaneous tissue. A 5 mm incision was made with an 11 blade. The subcutaneous tissue was dissected with a hemostat. The fascia was grasped with cockers. The fascia was opened sharply in between the cockers. The skin next to the incision was grasped with penetrating towel clamps and while pulling up on the skin a 5 mm port was placed under direct visualization. The abdomen was insuflated and then 3 more ports were placed. A 12 mm port was placed in the subxiphoid area and two 5 mm ports were placed in the right upper quadrant. The liver was inspected and looked normal. The patient's bed was then turned to the left and her head was brought up. The gallbladder was grasped at the body and pushed towards the right shoulder, this allowed me to visualize the neck of the gallbladder. The neck was grasped and pulled towards the right flank and down allowing me to visualize the lymph node. Using a [place] dissector with cautery the lymph node was gently dissected away from the tissues and the fatty tissue was also dissected away. The cystic duct was identified it was normal in size. The duct was dissected 360 degrees using the [place] dissector in order for me to visualize its entrance into the gallbladder. Liver was noted behind it. There were no other structures right behind. Critical view was achieved. 3 clips were placed one proximal and 2 distal and the cystic duct was cut. The cystic artery was then identified and dissected 360 degrees. It was located just medial to the cystic duct. It was visualized going into the gallbladder. Once dissected 3 more clips were placed one proximal and 2 distal and the artery was cut. Using the hook dissector the gallbladder was then dissected away from the liver bed and placed into an Endo Catch bag and pulled through the 12 mm port site. The 12 mm port was placed back into the abdomen under direct visualization. The liver bed was inspected no bleeding was noted. 20 cc of Local was injected into the abdomen above the liver bed. The 12 mm and the 2 ri ght upper quadrant ports were removed under direct visualization and no bleeding was noted from the fascia. The abdomen was deflated completely and lastly the umbilical port was removed. The subxiphoid incision was closed with 0-vicryl. The skin was cleaned and the incisions were closed with 4-0 Vicryl. The skin was dried and skin affix was applied over the closed incisions. Needle, instrument and sponge counts were correct at the end of the case. At this point the patient was woken up, extubated and taken back to recovery in stable condition. There were no immediate complications.
--- NOTE | 2023-06-20 14:03 | W.PM.DS.N ---
Date of service: 06/20/23 Time of Service: 16:46 DS: Diagnosis Discharge Diagnosis (1) Choledocholithiasis: Status: Resolved Asessment and Plan: The patient is doing well post-op from their Laparoscopic Cholecystectomy surgery.? They are having no nausea or vomiting. They are tolerating liquids and a snack. The pt is not having any chest pain or SOB.? Their pain is adequately controlled. They have been able to urinate.? ?HEENT:? no eye pain/drainage/redness/swelling. Mild sore throat ?Cardio- NSR, no chest pain, BP stable- see VS record ?Pulm: no sob or productive cough. No hemoptysis ?Incision- dressing is c/d/i w/ no excessive bleeding or drainage ?I discussed with the patient the findings at the time of surgery and the patient?s progress. ?We reviewed expectations at home; what the patient could expect for recovery time, and in the post-operative period.? We discussed the importance of walking to avoid blood clots and pneumonia.? We discussed and reviewed the patient's post-operative wound care and dressing needs.?? We reviewed their step-armas pain management plan, Rx called to the pharmacy of their choice.? We reviewed activity and limitations-see discharge instructions. We reviewed warning signs, and when to seek medical attention- see d/c instructions.?? Patient was given a postoperative follow-up appointment. Patient verbalized understanding of their postoperative instructions, how do to take care of themselves and their incision, and the pain management plan. Please see discharge instructions.? (2) S/P laparoscopic cholecystectomy: Discharge Plan Disposition Patient Disposition: Home Condition: Stable Discharge Details Reason For Visit: Choledocholithiasis Admit Date/Time: 06/15/23 17:24 Admit Provider: Astrid Palmer Attending Provider: Astrid Palmer [facility] Course: Mayela was admitted on Friday for choledocholithiasis and elevated LFTs. Total bilirubin was 5.1. She was transported to [facility] on Friday for an ERCP. She came back to his late Friday night. Her LFTs started to come down. Her T. bili is normal today. She underwent laparoscopic cholecystectomy today. She did well throughout surgery. Her pain has been well controlled with Tylenol, Toradol and oxycodone. Postop course and activity restrictions reviewed with her. Return precautions were also reviewed. Patient will be discharged home with a follow-up in 2 weeks. Home Meds and New Rx's Prescriptions: New oxycodone 5 mg Tablet 5 mg PO Q6H PRN PRNQty: 14 0RF Continued simethicone [Gas Relief (simethicone)] 125 mg capsule 125 mg PO QD-BID PRN (Reason: abdominal distention) Qty: 90 3RF Rx Instructions: Take as instructed Held sucralfate 1 gram tablet 1 g PO QACHS Qty: 90 3RF Hold Instructions: Resume on 06/27/23. resume if you develop epigastric pain Rx Instructions: Take as instructed Discharge Instructions Instructions: Low Fat Diet (DC), Laparoscopic Cholecystectomy (DC) Additional Instructions: Activity at Home after surgery: 1. Make sure you walk outside at least 4 times per day 2. You should be able to climb a flight of stairs 3. No driving for 72hrs, while in pain or taking narcotic pain medications 4. No strenuous activity or heavy lifting ( no more then 5 lb)for 2 weeks (laparoscopic surgery) Diet, Nutrition, & wound healin. Avoid alcohol until after you are recovered from your surgery 2. Make sure to eat plenty of lean protein (meat, fish, eggs, cottage cheese, beans) 3. Eat a variety of fruits and vegetables. Eat plenty of high fiber foods to avoid constipation. 4. Drink plenty of liquids to stay hydrated and avoid constipation -High-fat foods include: (Foods to Avoid for the next two weeks). ? Foods that are fried, like Tajik fries and potato chips ? High-fat meats, such as smith, bologna, sausage, ground beef, and ribs, pork products ? High-fat dairy products, such as cheese, ice cream, cream, whole milk, and sour cream ? Pizza ? Foods made with lard or butter ? Creamy soups or sauces ? Meat gravies ? Chocolate ? Oils, such as palm and coconut oil ? Skin of chicken or turkey ?? Nuts and nut butters ?? Avocadoes Pain Medications: 1.-Pain control: ?For the first 72 hours after surgery, take you pain meds continuously and not just when you have pain.?? Alternate Tylenol 1000mg by mouth every 8 hours, and Ibuprofen 600mg every 6 hours.? Make sure you take ibuprofen with food and not on an empty stomach.? ??Use the oxycodone for breakthrough pain- pain that is greater than a 7. ?- Use ICE! Ice really helps to keep the swelling down, and swelling causes pain. ??Twenty minutes on, and then off, continuously for the first 72hours.? After the first 72hrs, you can just use the Tylenol, ibuprofen, and ice, ?when you have pain.?? If you are taking narcotic pain medication, follow the instructions on the label and do not drive. Pain medications can make you very constipated. Make sure you are moving your bowels daily. If not, take Miralax, milk of magnesia or magnesium citrate.? - Anesthesia makes you very constipated.? Take a dose of milk of magnesia the morning after surgery. ? Use an ice bag for the first 72 hours. This helps to decrease swelling, which causes pain. It is normal to be more sore/painful and swollen towards the end of the day and first thing in the morning. 2. If a narcotic has been prescribed take as directed only for breakthrough pain For Constipation: 1. Take MiraLax daily for the first 72 hrs and while taking oxycodone Other: 1. You may shower daily in 24 hsr. Do not scrub the incisions. The purple skin glue will fall off on it's own. 2. Do not soak the incisions for 1 week 3. You may alternate ice and heat as needed for pain and swelling Wound Care: 1. Keep the incisions clean and dry Please call our office if you develop: 1. Fevers >101.5 2. Nausea or Vomiting 3. Worsening pain 4. Redness and thick discharge from the wounds If after hours please call the Hospital at and ask to speak to the on-call surgeon Dr. Palmer's (If I do not answer I may not have cell service). Please call the hospital and ask for the news production assistant surgeon F/u in Surgical clinic in 2 wks time. You will need to call to schedule an appoitment on Friday- [phone] Stand Alone Forms: Nursing Discharge Form Referrals: Astrid Palmer MD [ [facility] STAFF PHYSICIAN] - 07/04/23 8:00 am Activity:: see above Equipment/Supplies:: No Equipment Needed Diet:: low fat Discharge Orders Discharge Orders: Discharge Order (Routine); Ordered 06/20/23 Ordered By: June Reeder Discharge Data Discharge Date/Time-TO BE ENTERED AT DEPARTURE: 06/20/23 18:05 DS: Summary Time Spent with Patient providing and/or coordinating discharge services: Less than 30 minutes Status at Discharge Functional status at discharge: independent ambulation Overall status at discharge: patient is back to baseline Mental Status: mental status grossly normal Speech and Movement: speech and movement normal Mood: congruent mood Affect: normal affect Exam Psych Mental Status: mental status grossly normal Speech and Movement: speech and movement normal Mood: congruent mood Affect: normal affect DS: Data Vitals/I&O Vitals and I&O: Vital Signs Temperature 98.1 F 06/20/23 13:58 Temperature Source Tympanic 06/20/23 11:08 Pulse 69 06/20/23 13:58 Pulse Rhythm Regular 06/18/23 15:01 Respiratory Rate 23 06/20/23 13:58 Respiratory Effort Normal, Non-Labored 06/20/23 07:50 Respiratory Depth Normal 06/20/23 07:50 Respiratory Pattern Normal 06/20/23 07:50 Blood Pressure 141/87 H 06/20/23 13:58 Blood Pressure Position Sitting 06/15/23 14:38 Pulse Oximetry 100 06/20/23 13:58 Respiratory End-tidal CO2 36 06/20/23 13:58 Oxygen Delivery Method Room Air 06/20/23 13:58 Oxygen Flow Rate 2 06/20/23 13:53 Pain Level 4 06/20/23 13:58 Intake & Output 06/19/23 06/20/23 06/20/23 23:59 11:59 23:59 Intake Total 350 / 360 350 / 350 Balance 350 / 360 350 / 350 Weight 139 lb 15.896 oz Intake: IV 110 / 120 350 / 350 Oral 240 / 240 Other: Urine Appearance Clear Clear Comment pt voids independently Stool Size Large Stool Characteristics Formed Hard Emesis Description None Voiding Methods Toilet Data Completed and Pending Labs on day of discharge: Labs from last 24 hours 06/20/23 06:12 Sodium 142 Potassium 3.6 Chloride 107 Carbon Dioxide 28.3 Anion Gap 6.7 BUN 7 Creatinine 0.7 Est GFR (CKD-EPI 2020) 109.98 Glucose 80 Calcium 8.0 L Total Bilirubin 1.0 AST 103 H ALT 267 H Alkaline Phosphatase 137 H Total Protein 6.3 L Albumin 3.0 L PFSH All Active Problems (Updated 06/21/23 @ 00:01 by KARSTEN ALEGRE) Cervicalgia (Chronic) Medical History (Updated 06/21/23 @ 00:01 by KARSTEN ALEGRE) Cigarette smoker COVID-19 virus infection (~07/2022) Epigastric abdominal pain Gastroesophageal reflux disease Hyperlipidemia Surgical History (Updated 06/20/23 @ 16:48 by June Reeder DO) History of ankle surgery (~02/2011) Right ankle reconstruction and osteophyte excision History of removal of nevus (~2012) 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 S/P laparoscopic cholecystectomy Family History Mother Heart disease Atrial fibrillation Hypertension Father Alcohol abuse Depression Heart disease Hyperlipidemia Hypertension Sister Hypertension Maternal Grandfather Heart disease Hypertension Carotid artery disease Valvular heart disease TIA (transient ischemic attack) Maternal Grandmother Depression TIA (transient ischemic attack) Paternal Grandfather Stroke Heart disease Hypertension Hyperlipidemia Paternal Grandmother Depression Social History Smoking/Tobacco Use Status: Current every day Tobacco Type: cigarettes Tobacco: How many years used: 20 Quit status: quit date established (has quit before but restarted. ) Second Hand Exposure: Yes Smoking risk assessment performed?: Yes Alcohol Intake: current Alcohol Intake frequency: a few times a month Alcohol type: beer Drug use: Never Substance use type: does not use Caregiver/Support person: No Household members: significant other and children Housing: house Do you need help understanding health information?: Never Pets and animals: Yes Pets and animals: dog(s) Sexually active: Yes Do you think of yourself as: straight/heterosexual Current gender identity: female What is your relationship status?: living with partner How often do you talk on the phone with friends or family?: three or more times per week How often do you get together with friends or relatives?: twice per week How often do you attend episcopal or uatsdin services?: 1-3 times per year Do you belong to any clubs or organized social groups?: no Panel score (0-1 are the most socially isolated patients): 2 What type of physical activity do you participate in: walking Duration: 15-30 minutes/day Frequency: 3-4 times per week Ebony/Restoration: Mormonism Special ebony needs: No Seatbelt use: always Helmet use: Yes Helmet use: always Drive intox or ride w/intox route delivery service driver: No Do you feel safe at home: Yes Do you feel safe in your relationship?: Yes Female Reproductive History Menstrual control method: other (Vasectomy) History History 0 Para Hx # Term Pregnancies Multiple births Hx # Pregnancies Ectopic pregnancies AB induced Hx Number of Living Children AB spontaneous Time Spent with Patient Time Spent with Patient: 45-69 minutes Time was spent: preparing to see the patient(eg.review tests), obtaining and/or reviewing separately otained hiistory, ordering medications,tests, procedures, referring, communicating with other health human services care specialist, indepentently interpreting results, counseling the patient and care coordination
[2023-06-20] MEDS: fentaNYL 100 MCG/2 ML VIAL IVP ×2 (14:08→14:49)
--- NOTE | 2023-06-20 14:23 | W.ANESPOSTOP ---
Postoperative Evaluation Date, Time and Location Date Performed: 06/20/23 Time Performed: 14:14 Patient Location: PACU Vital Signs Most Recent Imported Vital Signs: Most Recent Vital Signs Temp Pulse Resp BP Pulse Ox 36.7 C 67 10 L 126/81 98 06/20/23 14:13 06/20/23 14:13 06/20/23 14:13 06/20/23 14:13 06/20/23 14:13 Pain Score Most Recent Pain Score: Most Recent Pain Score Pain Level [Upper Abdomen] 4 06/17/23 07:50 Pain Level 4 06/20/23 13:58 Assessment Mental Status: Awake (Alert & Oriented to Patient Baseline) Airway and Respiratory Function: Patent airway with normal (patient baseline) respiratory exam Cardiovascular Function: Hemodynamically Stable Hydration Status: Adequately Hydrated Nausea & Vomiting: No Nausea or Vomiting Pain: Pain is tolerable per patient (received fentanyl from [employer] LENDING MANAGER) Peripheral Nerve Block: Patient did not receive a nerve block
--- NOTE | 2023-06-20 16:47 | W.PM.PROGNOT ---
Date of Service Date of service: 06/20/23 Time of Service: 16:47 Assessment and Plan Assessment and plan (1) Choledocholithiasis: Status: Acute (2) Epigastric abdominal pain: Status: Acute (3) Gastroesophageal reflux disease: Status: Chronic (4) Cervicalgia: Status: Chronic (5) Hyperlipidemia: Status: Chronic (6) Cigarette smoker: Status: Chronic (7) S/P laparoscopic cholecystectomy: Assessment and plan: The patient is doing well post-op. Their pain is well controlled. They are having no nausea or vomiting. The pt is not having any chest pain or SOB, productive cough; no calf pain or swelling. The pt is making good urine. The pt pain is adequately controlled. The case was discussed with nursing and patient?s progress reviewed. All of the pt's home medications were addressed and adjusted accordingly for their oral intact status. HEENT: no jaundice. no eye pain/drainage/redness/swelling. Mild sore throat Cardio- NSR no chest pain, BP stable. Pulm: no sob or productive cough. no hemoptysis Incision- clean/dry. Dressing intact no excessive bleeding or drainage I discussed with the patient and/or there family about the findings in surgery and the pt's progress. We reviewed expectations for progress in the hospital; what the pt could expect for recovery time and length of stay. We discussed the importance of walking and pulmonary toilet to avoid blood clots and pneumonia. Continue current plans for pulmonary toilet, GI and DVT prophylaxis. We shall continue the current plan for pain management as it is at an appropriate level, and working well for the pt. Appropriate measures will be taken for constipation prevention, and this was also reviewed with the pt. The wound care plan was reviewed with nursing as well. pt has no pain and would like to go home d/c complete - see orders f/u in 2 wks -off of work for 1 weeek. rx oxycodone Objective Last Vital Signs Temp 36.7 C 06/20/23 14:58 Pulse 75 06/20/23 14:58 Resp 21 06/20/23 14:58 BP 116/86 06/20/23 14:58 Pulse Ox 95 06/20/23 14:58 Laboratory Results - last 24 hr 06/20/23 06:12 Sodium 142 Potassium 3.6 Chloride 107 Carbon Dioxide 28.3 Anion Gap 6.7 BUN 7 Creatinine 0.7 Est GFR (CKD-EPI 2020) 109.98 Glucose 80 Calcium 8.0 L Total Bilirubin 1.0 AST 103 H ALT 267 H Alkaline Phosphatase 137 H Total Protein 6.3 L Albumin 3.0 L PAWSS Have you Been Recently Intoxicated or Drunk Within the Last 30 days?: Yes Have you Ever Experienced Previous Episodes of Alcohol Withdrawal?: No Have you ever Experienced Withdrawal Seizures?: No Have you ever Experienced Delirium Tremens(DT)s?: No Have you ever undergone Alcohol Rehabilitation Treatment (i.e, inpt ot outpatient treatment programs)?: No Have you ever Experienced Blackouts?: No Have you ever Combined Alcohol with other Downers within the last 90 days?: No Have you ever Combined Alcohol with any other Substance of Abuse during the last 90 days?: No Positive Blood Alcohol level on Presentation? [PCS.BAL]: No Evidence of Increased Autonomic Activity (i.e. HR>120, tremor, sweating, agitation, nausea)?: No Result: 1 Time Spent with Patient Time Spent with Patient: 25-34 minutes Time was spent: preparing to see the patient(eg.review tests), obtaining and/or reviewing separately otained hiistory, ordering medications,tests, procedures, referring, communicating with other health urgent care physician assistant, indepentently interpreting results, counseling the patient and care coordination
[2023-06-20] MEDS: oxyCODONE 5 MG TAB PO (16:55)
--- NOTE | 2023-06-20 17:12 | PDOC.CMDIS ---
Date of service: 06/20/23 Time of Service: 17:12 LACE Index Scoring Tool Questions: Length of Stay (in days): 4 - 6 Was the patient admitted via the E.D.?: Yes E.D. Visits: 0 Answers: Total Score: 7 Risk of Readmission: Low Risk Care Management Discharge Plan Reason for Hospitalization: Choledocholithiasis Discharge Plan: Mayela will return home with outpatient follow up with surgery and PCP, no other services needed at this time. She will transport via private vehicle with her family. Patient/Family Education Needs: Review discharge instructions, discuss Ask Me Three.
== END 2023-06-20 18:05 | disposition home or self-care (01) | DRG 419 ==
LOC: ER 17:52 → MS 18:28
PROVIDERS: Surgery; Admitting Provider Surgery; Emergency Provider Emergency Medicine; PCP Nurse Practitioner Family; Visit Provider Surgery
PROC: 0FT44ZZ Resection of Gallbladder, Percutaneous Endoscopic Approach (ICD-10-PCS; CPT 47563; principal; 2023-06-20 12:30)
DX: K80.10 Calculus of gallbladder with chronic cholecystitis without obstruction (principal); E78.5 Hyperlipidemia, unspecified; M54.2 Cervicalgia; F17.210 Nicotine dependence, cigarettes, uncomplicated; K21.9 Gastro-esophageal reflux disease without esophagitis
CPT/HCPCS: 47562; 36415; 80053; 81025; 83690; 85027; 96361; 96365; 96368; 96375; 99285; 74177; 81003; 81015; 83735; 85025; 85610; 88304; J0131; J0690; J0696; J1100; J1885; J2270; J2405; J2704; J3010; J3480; J3490

== ENCOUNTER 2023-07-29 02:22 | Outpatient (CLI) | payer BC, SELFPAY ==
[2023-07-29 08:41] LABS: ALT 25 U/L (14-59); AST 15 U/L (15-37); Albumin 3.7 g/dL (3.4-5.0); Alkaline Phosphatase 72 U/L (46-116); Anion Gap 8.6 mmol/L (3-11); BUN 14 mg/dL (7-18); Bilirubin, Total 0.3 mg/dL (0.2-1.0); CO2 27.4 mmol/L (21.0-32.0); CREATININE 0.8 mg/dL (0.55-1.02); Calcium 8.7 mg/dL (8.5-10.1); Chloride 103 mmol/L (98-107); Glucose 94 mg/dL (74-106); Potassium 3.3 mmol/L (3.5-5.1); Sodium 139 mmol/L (136-145); Total Protein 7.5 g/dL (6.4-8.2)
== END 2023-07-29 02:23 | disposition home or self-care (01) ==
PROVIDERS: PCP Nurse Practitioner Family; Visit Provider Nurse Practitioner Family
DX: Z90.49 Acquired absence of other specified parts of digestive tract (principal); E78.5 Hyperlipidemia, unspecified; K21.9 Gastro-esophageal reflux disease without esophagitis
CPT/HCPCS: 36415; 80053

== ENCOUNTER → 2023-08-05 00:40 | Outpatient (CLI) | payer BC, SELFPAY ==
--- NOTE | 2023-08-05 07:45 | DI.MAMMO_ITS ---
Exam(s) MAMMO SCREENING EXAM: MAMMO SCREENING CLINICAL HISTORY: screening,Z12.39 TECHNIQUE: Mammograms were interpreted according to the usual protocol including computer analysis w [employer] CAD system, tomosynthesis and C-view imaging. COMPARISON: 2020 FINDINGS: The breasts are composed of scattered fibroglandular densities, Breast Density category B. No suspicious masses or suspicious microcalcifications are seen. No skin thickening or abnormal axillary lymph nodes are seen. There has been no significant change from prior exams. IMPRESSION: BI-RADS Category 1, Negative mammogram Yearly screening mammography is recommended. Breast Density - Category B, scattered fibroglandular densities. A negative radiographic report should not delay biopsy if a dominant or clinically suspicious mass is present. Up to ten percent of cancers are not identified on mammography. A negative report may reinforce clinical impression. Adenosis and dense breasts may obscure an underlying neoplasm. False positive reports average 6 to 10%. Patient will receive a letter notifying them of these results.
== END ==
PROVIDERS: PCP Nurse Practitioner Family; Visit Provider Nurse Practitioner Family
DX: Z12.31 Encounter for screening mammogram for malignant neoplasm of breast (principal)
CPT/HCPCS: 77063; 77067

== ENCOUNTER 2024-07-28 02:25 | Outpatient (CLI) | payer BC, SELFPAY ==
[2024-07-28 07:35] LABS: Abs Immature Grans 0.02 10^3/uL (0.0-0.06); Absolute Basophil Count 0.04 10^3/uL (0.0-0.2); Absolute Eosinophil Count 0.21 10^3/uL (0.0-0.7); Absolute Lymphocyte Count 1.56 10^3/uL (1.2-3.4); Absolute Monocyte Count 0.57 10^3/uL (0.1-0.8); Absolute Neutrophil Count 4.49 10^3/uL (1.2-6.7); Basophils % 0.6 %; HCT 44.5 % (36.0-46.0); HGB 15.1 g/dL (11.2-15.7); Immature Grans % 0.3 %; Lymphocytes % 22.6 %; MCH 29.6 pg (27.0-33.0); MCHC 33.9 % (32.0-36.0); MCV 87 fL (80-95); MPV 9.9 fL (8.0-11.0); Monocytes % 8.3 %; Neutrophils % 65.2 %; Platelet Count 262 10^3/uL (130-400); RDW 12.6 % (11.7-14.6); RDW-SD 40.4 fL; WBC 6.89 10^3/uL (4.4-10.8)
[2024-07-28 08:29] LABS: ALT 30 U/L (14-59); AST 20 U/L (15-37); Albumin 3.7 g/dL (3.4-5.0); Alkaline Phosphatase 77 U/L (46-116); Anion Gap 6.5 mmol/L (3-11); BUN 12 mg/dL (7-18); Bilirubin, Total 0.27 mg/dL (0.2-1.0); CO2 30.5 mmol/L (21.0-32.0); CREATININE 0.8 mg/dL (0.55-1.02); Calcium 8.9 mg/dL (8.5-10.1); Calculated LDL 96 mg/dL (<100); Chloride 103 mmol/L (98-107); Cholesterol 164 mg/dL (<200); Estimated GFR 93.12 (mL/min/1.73m2); Glucose 96 mg/dL (74-106); HDL Cholesterol 51 mg/dL (40-60); Potassium 3.5 mmol/L (3.5-5.1); Sodium 140 mmol/L (136-145); TSH (W/Ref FT4) 1.66 uIU/mL (0.36-3.74); Total Protein 7.4 g/dL (6.4-8.2); Triglyceride 86 mg/dL (<150)
[2024-07-28 20:41] LABS: HIV-1/2 Ag & Ab Screen Negative (Negative)
[2024-07-28 20:47] LABS: Hepatitis C Ab w Rflx HCV PCR Negative (Negative)
[2024-07-28 20:50] LABS: HBs Antibody, Quant >1000.0 mIU/mL (See Note); Hep B Surface Ab Positive (See Note); Hepatitis B Core Antibody Negative (Negative); Hepatitis B Surface Antigen Negative (Negative)
== END 2024-07-28 02:26 | disposition home or self-care (01) ==
LOC: LBO 02:25
PROVIDERS: PCP Nurse Practitioner Family; Visit Provider Nurse Practitioner Family
DX: Z00.00 Encounter for general adult medical examination without abnormal findings (principal); Z11.4 Encounter for screening for human immunodeficiency virus [HIV]; Z11.59 Encounter for screening for other viral diseases
CPT/HCPCS: 36415; 80053; 80061; 86704; 86706; 86803; 87340; 87389; 84443; 85025

== ENCOUNTER 2024-12-27 00:49 | Outpatient (CLI) | payer BC, SELFPAY ==
--- NOTE | 2024-12-27 07:45 | DI.MAMMO_ITS ---
Exam(s) MAMMO SCREENING EXAM: MAMMO SCREENING CLINICAL HISTORY: screening,z12.39 TECHNIQUE: Mammograms were interpreted according to the usual protocol including computer analysis w [employer] CAD system, tomosynthesis and C-view imaging. COMPARISON: 2019 and 2022 FINDINGS: The breasts are composed of scattered fibroglandular densities, Breast Density category B. No suspicious masses or suspicious microcalcifications are seen. No skin thickening or abnormal axillary lymph nodes are seen. There has been no significant change from prior exams. IMPRESSION: BI-RADS Category 1, Negative mammogram Yearly screening mammography is recommended. Breast Density - Category B, scattered fibroglandular densities. A negative radiographic report should not delay biopsy if a dominant or clinically suspicious mass is present. Up to ten percent of cancers are not identified on mammography. A negative report may reinforce clinical impression. Adenosis and dense breasts may obscure an underlying neoplasm. False positive reports average 6 to 10%. Patient will receive a letter notifying them of these results.
== END 2024-12-27 01:09 ==
PROVIDERS: PCP Nurse Practitioner Family; Visit Provider Nurse Practitioner Family
DX: Z12.31 Encounter for screening mammogram for malignant neoplasm of breast (principal); R92.323 Mammographic fibroglandular density, bilateral breasts
CPT/HCPCS: 77063; 77067

== ENCOUNTER 2025-01-21 06:09 | Day surgery (SDC) | payer BC, SELFPAY ==
[2025-01-21 06:15] VITALS: BP 115/82; PULSE 73; RESP 18; TEMP 36.7; O2SAT 97
[2025-01-21] MEDS: Lactated Ringers 1,000 ML 80 ML IV (06:52)
--- NOTE | 2025-01-21 07:04 | W.ANESPRE ---
General Info Date of Service Date Performed: 01/21/25 Height: 5 ft 0.75 in Weight: 64.8 kg Body Mass Index (BMI): 27.2 Surgical Procedure: Operation Date: 01/21/25 07:40 Proposed Procedure Side Surgeon p Colonoscopy Jovita Miller MD s Possible Hemorrhoid Banding Jovita Miller MD Meds Allergies and Home Medications Allergies Allergy/AdvReac Type Severity Reaction Status Date / Time No Known Allergies Allergy Verified 01/21/25 06:32 Home Medication ?Medication ?Instructions ?Recorded simethicone 125 mg capsule (Gas 125 mg PO QD-BID PRN abdominal 04/02/23 Relief (simethicone)) distention #90 caps bisacodyl 5 mg tablet,delayed 5 mg PO ONCE #4 tabs 11/11/24 release (Dulcolax (bisacodyl)) polyethylene glycol 3350 17 17 g PO ONCE #238 grams 11/11/24 gram/dose oral powder amlodipine 10 mg tablet 10 mg PO DAILY #90 tabs 01/12/25 Current Visit Medications: Current Medications Generic Name Dose Route Start Last Admin Trade Name Freq PRN Reason Stop Dose Admin Ringer's Solution 1,000 mls @ 80 mls/hr 01/21/25 06:00 01/21/25 06:52 IV 01/21/25 23:59 80 mls/hr INFUSION FAYE Administration IV Miscellaneous Supplies 1 each 01/21/25 06:00 Iv Access IV 01/21/25 23:59 DIRECTED FAYE Sodium Chloride 0 ml 01/21/25 06:00 Normal Saline Flush 10 Ml Syr IV 01/21/25 23:59 PRN PRN Sodium Chloride 0 ml 01/21/25 06:00 Normal Saline 10 Ml Vial IJ 01/21/25 23:59 DIRECTED PRN Sterile Water 0 ml 01/21/25 06:00 Water,Injection,Sterile 10 Ml Vial IJ 01/21/25 23:59 DIRECTED PRN PFSH Active Problems Active Problems: Problem Status Onset Code Hypertension Chronic I10 Hyperlipidemia Chronic E78.5 Cigarette smoker Chronic F17.210 External hemorrhoids Chronic K64.4 Medical History Medical History (Updated 01/21/25 @ 07:24 by Jovita Miller MD) Cervicalgia Gastroesophageal reflux disease Surgical History Surgical History S/P ERCP (06/18/23) S/P laparoscopic cholecystectomy (06/20/23) History of removal of nevus (~2012) 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 History of ankle surgery (~02/2011) Right ankle reconstruction and osteophyte excision Tobacco Smoking/Tobacco Use Status: Current every day Tobacco Type: cigarettes Passive smoking exposure: No Second hand exposure: Yes Alcohol Alcohol Intake: current Alcohol intake frequency: a few times a week Alcohol type: beer Substance Use Substance use: Socially Substance use type: marijuana Details: Gummies Prental History History 0 Para Hx # Term Pregnancies Multiple births Hx # Pregnancies Ectopic pregnancies AB induced Hx Number of Living Children AB spontaneous Vital Signs and Lab Results Vital Signs Most Recent Vital Signs in EMR: Most Recent Vital Signs Temp Pulse Resp BP Pulse Ox 36.7 C 73 18 115/82 97 01/21/25 06:15 01/21/25 06:15 01/21/25 06:15 01/21/25 06:15 01/21/25 06:15 Lab Results Blood Type / Crossmatch: No Data to Display Complete Blood Count: No Data to Display Complete Metabolic Panel: No Data to Display Liver Function Panel: No Data to Display Coagulation Panel: No Data to Display Cardiac Panel: No Data to Display Arterial Blood Gas: No Data to Display Venous Blood Gas: No Data to Display Pancreas Panel: No Data to Display Thyroid Panel: No Data to Display Infectious Disease: No Data to Display Blood Cultures: No Data to Display Toxicology Panel: No Data to Display Panel: No Data to Display Anesthesia Assessment and Plan Anesthesia History Personal History: No History of Anesthesia Complications Family History: No Family History of Anesthesia Complications Exercise Tolerance Exercise Tolerance: Metabolic Equivalents>4 Pertinent Negatives Pertinent Negatives: No Major Cardiovascular Symptoms or Complaints and No Major Pulmonary Symptoms or Complaints Cardiac & Pulmonary Exam Cardiac Exam: Normal S1/S2 Heart Sounds Pulmonary Exam: Clear Bilateral Breath Sounds Implantable Cardiac Device Does patient have a Pacemaker or an ICD?: No Airway Exam Known Difficult Airway: No Mallampati Class: 2 Mouth Opening: Normal (> 3cm) Thyromental Distance: Greater than 3 cm Neck Range of Motion: Full ROM Neck Circumference: Normal Teeth Condition: Normal Dentition ASA Classification ASA Score: ASA 2 Emergency Case?: No NPO Status NPO Status: NPO Clears >2 hours, Solids >8 hours Status Status: Not Per Patient Anesthesia Plan Resuscitation Status: Full Code Anesthesia Technique: General Anesthesia Airway Planned: Natural Airway Monitors Used: Standard Monitors Preoperative Comments:: No active GERD symptoms today
[2025-01-21 07:07] VITALS: BMI 27.2
--- NOTE | 2025-01-21 07:20 | HPE_ITS ---
Date of service: 01/21/25 Time of Service: 07:20 Assessment and Plan Assessment and plan (1) Encounter for screening colonoscopy: Status: Acute Assessment and plan: I have explained the procedure of colonoscopy including the use of conscious sedation. I have outlined the risks of the procedure including those of bowel perforation, bleeding after a polypectomy, oversedation, and inability to comple te the exam. The patient agrees to proceed and signed the consent form. (2) Anal bleeding: Status: Acute Assessment and plan: Patient with a sentinel tag likely reflects a corresponding anal fissure. Education on use of sitz bath's provided. Patient is reassured that she does not have an internal hemorrhoid. History of Present Illness Narrative: Patient presents for for screening colonoscopy. Had complaints of protruding mass at the anus which she received to be a prolapsing internal hemorrhoid but does agree to have this examined today because she states it is out. He was told that her preop screening that perhaps she could have a hemorrhoid banding at the time of her screening colonoscopy. She has irregular bowel habits since a cholecystectomy and occasional blood spotting. Review of Systems Narrative: Patient denies easy fatigue, poor appetite Cardiac: denies chest pain or irregular heartbeat Respiratory: denies dyspnea, HOGAN, cough Heme: denies easy bleeding, easy bruising PFSH All Active Problems (Updated 01/21/25 @ 07:24 by Jovita Miller MD) Anal bleeding (Acute) Encounter for screening colonoscopy (Acute) Hypertension (Chronic) Hyperlipidemia (Chronic) Cigarette smoker (Chronic) External hemorrhoids (Chronic) Medical History Cervicalgia Gastroesophageal reflux disease Surgical History S/P ERCP (06/18/23) S/P laparoscopic cholecystectomy (06/20/23) History of removal of nevus (~2012) 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 History of ankle surgery (~02/2011) Right ankle reconstruction and osteophyte excision Family History Mother Heart disease Atrial fibrillation Hypertension Father , 67 from pancreatic cancer Alcohol abuse Depression Heart disease Hyperlipidemia Hypertension Pancreatic cancer Colon polyp Sister Hypertension Maternal Grandfather Heart disease Hypertension Carotid artery disease Valvular heart disease TIA (transient ischemic attack) Maternal Grandmother Depression TIA (transient ischemic attack) Colon polyp Paternal Grandfather Stroke Heart disease Hypertension Hyperlipidemia Paternal Grandmother Depression Colon cancer Pancreatic cancer Social History Smoking/Tobacco Use Status: Current every day Tobacco Type: cigarettes Tobacco: How many years used: 20 Quit status: quit date established Second Hand Exposure: Yes Smoking risk assessment performed?: Yes Alcohol Intake: current Alcohol Intake frequency: a few times a week Alcohol type: beer Drug use: Socially Substance use type: marijuana Details: Krysten Caregiver/Support person: No Household members: significant other and children Housing: house Do you need help understanding health information?: Never Pets and animals: Yes Pets and animals: dog(s) Sexually active: Yes Do you think of yourself as: straight/heterosexual Current gender identity: female What is your relationship status?: living with partner How often do you talk on the phone with friends or family?: three or more times per week How often do you get together with friends or relatives?: twice per week How often do you attend christianity or hoahaoism services?: 1-3 times per year Do you belong to any clubs or organized social groups?: no Panel score (0-1 are the most socially isolated patients): 2 What type of physical activity do you participate in: walking Duration: 15-30 minutes/day Frequency: 3-4 times per week Ebony/Moravian: Caodaism Special ebony needs: No Seatbelt use: always Helmet use: Yes Helmet use: always Drive intox or ride w/intox otr truck driver: No Do you feel safe at home: Yes Do you feel safe in your relationship?: Yes Female Reproductive History Menstrual control method: other (Vasectomy) History History 0 Para Hx # Term Pregnancies Multiple births Hx # Pregnancies Ectopic pregnancies AB induced Hx Number of Living Children AB spontaneous Meds Allergies and Home Medications Allergies Allergy/AdvReac Type Severity Reaction Status Date / Time No Known Allergies Allergy Verified 01/21/25 06:32 Home Medications ?Medication ?Instructions ?Recorded ?Confirmed ?Type simethicone 125 mg capsule (Gas 125 mg PO QD-BID PRN abdominal 04/02/23 01/21/25 Rx Relief (simethicone)) distention #90 caps bisacodyl 5 mg tablet,delayed 5 mg PO ONCE #4 tabs 11/11/24 01/21/25 Rx release (Dulcolax (bisacodyl)) polyethylene glycol 3350 17 17 g PO ONCE #238 grams 11/11/24 01/21/25 Rx gram/dose oral powder amlodipine 10 mg tablet 10 mg PO DAILY #90 tabs 01/12/25 01/21/25 Rx Exam Narrative Exam Narrative: Constitutional: appears well, alert, oriented, NAD HEENT: normal appearance, head atraumatic, Neck midline Chest: clear to auscultation Cor: RRR S1 S2 no murmur Abdo: soft and non tender. Perianal exam was performed to the left lateral decubitus position. Spreading of the perianal skin reveals a posterior midline skin tag and an anterior midline skin fold. Palpation of these structures does confirm that the perceived prolapsed hemorrhoid is a posterior anal sentinel tag. Psych: normal mood and affect Results Last Vital Signs Temp 36.7 C 01/21/25 06:15 Pulse 73 01/21/25 06:15 Resp 18 01/21/25 06:15 BP 115/82 01/21/25 06:15 Pulse Ox 97 01/21/25 06:15 Time Spent Time spent with Patient: <40 minutes Time was spent: preparing to see the patient(eg.review tests), obtaining and/or reviewing separately otained hiistory and counseling the patient
--- NOTE | 2025-01-21 08:09 | W.COLOREPORT ---
Date of service: 01/21/25 Time of Service: 08:09 Colonoscopy Report Date of procedure: 01/21/25 Pre-op diagnosis general: screening Post-op diagnosis procedure note: other (flat cecal polyp) Procedure: Colonoscopy with piecemeal cold polypectomy Surgeon: Jovita Miller Anesthesia Type: General:No Airway Estimated blood loss (mL): 5 Pathology: other Complications: None Disposition: same day Indications: screening Findings: 15 to 20 mm flat cecal polyp adjacent to appendiceal orifice and the proximal cecum. This polyp was removed piecemeal with a cold snare and additional retained polyp material was removed with multiple bites of a cold biopsy forceps. The polyp was removed completely, all aspects retrieved and sent for pathology. Excellent prep. Retroflexion reveals multiple hypertrophied anal papillae. Procedure Description: After the risks, benefits, and alternatives of the procedure were thoroughly explained, informed consent was obtained. The Patient is brought to the procedure room and time out is performed confirming patient identity, nature of procedure. Patient is connected to monitoring devices including O2 sat, EKG and given supplemental oxygen per anesthesia. After appropriate anesthetic is obtained, patient is placed in the left lateral decubitus position and digital rectal exam performed with the findings noted . The colonoscope is inserted through the anus and guided under direct vision to the proximal colon as confirmed by presence of the appendiceal orifice and the ileocecal valve. The colonoscope is then slowly withdrawn , inspecting all aspects of the mucosa completely. Findings and any associated intervention, are noted above. The colonoscope was then completely withdrawn from the patient and the procedure terminated. The patient tolerated the procedure well and is transferred back to the Day surgery unit in stable condition.
--- NOTE | 2025-01-21 08:15 | W.PM.DSUDISC ---
Date of service: 01/21/25 Discharge Plan Disposition Patient Disposition: Home Discharge Details Attending Provider: Jovita Miller Primary Care Provider: Kyra Prince Home Meds and New Rx's Prescriptions: No Action simethicone [Gas Relief (simethicone)] 125 mg capsule 125 mg PO QD-BID PRN (Reason: abdominal distention) Qty: 90 3RF Rx Instructions: Take as instructed amlodipine 10 mg tablet 10 mg PO DAILY Qty: 90 3RF bisacodyl [Dulcolax (bisacodyl)] 5 mg tablet,delayed release (DR/EC) 5 mg PO ONCE Qty: 4 0RF Rx Instructions: Take per colonoscopy instructions provided by ordering providers office polyethylene glycol 3350 17 gram/dose powder 17 g PO ONCE Qty: 238 0RF Rx Instructions: Take per colonoscopy instructions provided by ordering providers office Discharge Instructions Additional Instructions: You have an external anal skin tag called a sentinel tag. This generally is associated with anal fissures. Please obtain a sitz bath to use as needed when you have painful bowel movements with associated spotting of blood. You are found to have a moderately large flat polyp of the cecum. This polyp was removed and sent for pathology. You will receive a letter with the results of the pathology report and a recommendation for your next colonoscopy. If pathology does confirm this to be an adenomatous polyp, which is the type that can cause colon cancer, I will recommend that you repeat your colonoscopy in 1 year. This is to be sure that this polyp does not regrow in the same spot. Stand Alone Forms: Anesthesia Discharge Inst., DSU Post op Instructions, Colonoscopy Post Instructions Discharge Orders Discharge Orders: Discharge Order (Routine); Ordered 01/21/25 Ordered By: Jovita Miller Discharge Data Discharge Date/Time-TO BE ENTERED AT DEPARTURE: 01/21/25 08:39 DS: Diagnosis Discharge Diagnosis (1) Encounter for screening colonoscopy: Status: Acute (2) Anal bleeding: Status: Acute
[2025-01-21 08:17] VITALS: BP 93/60; PULSE 76; RESP 15; TEMP 36.3; O2SAT 97
[2025-01-21 08:26] VITALS: BP 98/61; PULSE 75; O2SAT 98
[2025-01-21 08:41] VITALS: BP 107/90; PULSE 75; RESP 16; O2SAT 100
--- NOTE | 2025-01-21 09:23 | W.ANESPOSTOP ---
Postoperative Evaluation Date, Time and Location Date Performed: 01/21/25 Time Performed: 08:15 Patient Location: Day Surgery Unit Vital Signs Most Recent Imported Vital Signs: Most Recent Vital Signs Temp Pulse Resp BP Pulse Ox 36.3 C L 75 16 107/90 100 01/21/25 08:17 01/21/25 08:41 01/21/25 08:41 01/21/25 08:41 01/21/25 08:41 Pain Score Most Recent Pain Score: Most Recent Pain Score Pain Level 0 01/21/25 08:41 Assessment Mental Status: Awake (Alert & Oriented to Patient Baseline) Airway and Respiratory Function: Patent airway with normal (patient baseline) respiratory exam Cardiovascular Function: Hemodynamically Stable Hydration Status: Adequately Hydrated Nausea & Vomiting: No Nausea or Vomiting Pain: Pt. Denies Any Pain Peripheral Nerve Block: Patient did not receive a nerve block
== END 2025-01-21 08:39 | disposition home or self-care (01) ==
PROVIDERS: PCP Nurse Practitioner Family; Visit Provider Surgery
PROC: 0DJD8ZZ Inspection of Lower Intestinal Tract, Via Natural or Artificial Opening Endoscopic (ICD-10-PCS; CPT 45378; principal; 2025-01-21 07:30)
DX: Z12.11 Encounter for screening for malignant neoplasm of colon (principal); K62.5 Hemorrhage of anus and rectum; D12.0 Benign neoplasm of cecum; K64.4 Residual hemorrhoidal skin tags
CPT/HCPCS: 45385; 81025; 88305; J2003; J2371; J2405; J2704; J3010

== ENCOUNTER 2025-07-26 00:48 | Outpatient (CLI) | payer BC, SELFPAY ==
--- NOTE | 2025-07-26 06:15 | DI.RAD_ITS ---
Exam(s) XR CERVICAL SPINE COMP 4-5V EXAM: XR CERVICAL SPINE COMP 4-5V CLINICAL HISTORY: chronic neck pain,M54.2. TECHNIQUE: 2D digital imaging was performed. Five views were performed. COMPARISON: No exams were available for comparison FINDINGS: BONES: No fracture or destructive lesion. Vertebral bodies are unremarkable. There are degenerative changes of the facet joints throughout the greatest at C 2 3 and C7-T1. No significant neural foraminal narrowing. DISKS: There is mild narrowing of the C5-6 and C6-7 disc spaces with small endplate osteophytes. The remaining intervertebral disc spaces are maintained. ALIGNMENT: There is degenerative straightening of the normal cervical lordosis. The odontoid and atlantoaxial articulations are normal. SOFT TISSUE: Normal. The lung apices are clear. IMPRESSION: Degenerative disc changes greatest at C5-6 and C6-7. Facet joint degenerative changes, greatest at C2-3 and C7-T1. DATA REPOSITORY: RADIATION DOSE DELIVERED:
--- NOTE | 2025-07-26 06:15 | DI.RAD_ITS ---
Exam(s) XR LUMBAR SPINE COMPLETE EXAM: XR LUMBAR SPINE COMPLETE CLINICAL HISTORY: left lumbar radiculopathy,M54.16. TECHNIQUE: 2D digital imaging was performed. Three views were performed standing. COMPARISON: No exams were available for comparison FINDINGS: BONES: No fracture or destructive lesion. Vertebral body heights are maintained. Minimal endplate osteophytes. No facet hypertrophy identified . The SI joints are unremarkable. DISKS: Intervertebral disc spaces are maintained. ALIGNMENT: Lumbar spinal alignment is within normal limits. SOFT TISSUE: Right upper quadrant surgical clips. IMPRESSION: Minimal degenerative changes. DATA REPOSITORY: RADIATION DOSE DELIVERED:
== END 2025-07-26 01:08 ==
PROVIDERS: PCP Nurse Practitioner Family; Visit Provider Nurse Practitioner Family
DX: M54.2 Cervicalgia (principal); M54.16 Radiculopathy, lumbar region
CPT/HCPCS: 72050; 72110

== ENCOUNTER 2025-07-29 03:58 | Outpatient (CLI) | payer BC, SELFPAY ==
[2025-07-29 07:16] LABS: ESR 4 mm/hr (0-20)
[2025-07-29 07:19] LABS: Abs Immature Grans 0.03 10^3/uL (0.0-0.06); HCT 45.5 % (36.0-46.0); HGB 15.3 g/dL (11.2-15.7); Immature Grans % 0.3 %; MCH 29.3 pg (27.0-33.0); MCHC 33.6 % (32.0-36.0); MCV 87 fL (80-95); MPV 9.7 fL (8.0-11.0); Platelet Count 314 10^3/uL (130-400); RBC 5.23 10^6/uL (3.93-5.22); RDW 12.8 % (11.7-14.6); RDW-SD 40.4 fL; WBC 9.21 10^3/uL (4.4-10.8)
[2025-07-29 08:00] LABS: ALT 29 U/L (14-59); AST 18 U/L (15-37); Albumin 3.9 g/dL (3.4-5.0); Alkaline Phosphatase 72 U/L (46-116); Anion Gap 9.0 mmol/L (3-11); BUN 9 mg/dL (7-18); Bilirubin, Total 0.4 mg/dL (0.2-1.0); CO2 30.0 mmol/L (21.0-32.0); Calcium 8.6 mg/dL (8.5-10.1); Chloride 101 mmol/L (98-107); Estimated GFR 92.54 (mL/min/1.73m2); Glucose 93 mg/dL (74-106); Potassium 3.6 mmol/L (3.5-5.1); Sodium 140 mmol/L (136-145); Total Protein 7.7 g/dL (6.4-8.2)
[2025-07-29 08:01] LABS: C-Reactive Protein < 0.50 mg/dL (<or=0.5)
[2025-08-01 00:24] LABS: B. miyamotoi PCR Negative (Negative); Babesia divergens/MO-1 Negative (Negative); Ehrlichia muris eauclairensis Negative (Negative)
[2025-08-01 11:33] LABS: Lyme Ab w Rflx to Lyme Confirm Negative (Negative)
== END 2025-07-29 03:59 | disposition home or self-care (01) ==
LOC: LBO 03:59
PROVIDERS: PCP Nurse Practitioner Family; Visit Provider Nurse Practitioner Family
DX: M25.59 Pain in other specified joint (principal)
CPT/HCPCS: 36415; 80053; 85652; 87798; 85025; 86038; 86140; 86431; 86618

== ENCOUNTER 2025-08-24 01:14 | Outpatient (CLI) | payer BC, SELFPAY ==
--- NOTE | 2025-08-24 08:15 | DI.MRI_ITS ---
Exam(s) MR CERVICAL SPINE WO EXAM: MR CERVICAL SPINE WO CLINICAL HISTORY: neck pain with radiation to BUE,cervical radiculopathy,m54.2,m54.12 TECHNIQUE: Multiplanar multisequence MRI of the cervical spine was performed without intravenous contrast. COMPARISON: CR XR CERVICAL SPINE COMP 4-5V from 07/26/2025 FINDINGS: BONES: Vertebral body heights are maintained. Alignment is normal. Bone marrow signal intensity is within normal limits. CERVICAL CORD: Craniovertebral junction is unremarkable. The cervical cord is normal size and signal intensity. SOFT TISSUES: Unremarkable. C2-3: No disc herniation or bulge is identified. No evidence of neural foraminal narrowing. No significant central canal stenosis. C3-4: No disc herniation or bulge is identified. No evidence of neural foraminal narrowing. No significant central canal stenosis. C4-5: No disc herniation or bulge is identified. No evidence of neural foraminal narrowing. No significant central canal stenosis. C5-6: Mild loss of disc height, greater anteriorly. Endplate osteophytes and concentric disc bulging, slightly eccentric toward the left. Effacement of the anterior CSF space. Moderate bilateral neural foraminal narrowing. C6-7: Mild loss of disc height, greater anteriorly. Endplate osteophytes and concentric disc bulging. Effacement of the anterior CSF space. Moderate bilateral neural foraminal narrowing. C7-T1: No disc herniation or bulge is identified. No evidence of neural foraminal narrowing. No significant central canal stenosis. IMPRESSION: Degenerative disc osteophytes at C5-6 and C6-7 cause mild narrowing of the AP dimension of the central canal and moderate bilateral neural foraminal narrowing. DATA REPOSITORY:
--- NOTE | 2025-08-24 08:15 | DI.MRI_ITS ---
Exam(s) MR LUMBAR SPINE WO EXAM: MR LUMBAR SPINE WO CLINICAL HISTORY: lt lumbar [id number]. TECHNIQUE: Multiplanar multisequence MRI of the Lumbar spine was performed. COMPARISON: CR XR LUMBAR SPINE COMPLETE from 07/26/2025 FINDINGS: Bones: The last intervertebral disc space is designated the L5/S1 level for the numbering purpose of this examination. The vertebral body heights are well maintained. Alignment: Unremarkable. The marrow signal characteristics are unremarkable. Cord: The conus tip ends at the T12 level. It is of normal size and signal intensity. T12-L1: No focal disc herniation is present. No central spinal canal stenosis.No neural foraminal stenosis. L1-2: No focal disc herniation is present. No central spinal canal stenosis.No neural foraminal stenosis. L2-3:Partial disc desiccation. No focal disc herniation is present. No central spinal canal stenosis.No neural foraminal stenosis. L3-4: Partial disc desiccation.Minimal disc bulging. No focal disc herniation is present. No central spinal canal stenosis.No neural foraminal stenosis. L4-5:Partial disc desiccation. Minimal disc bulging. No focal disc herniation is present. No central spinal canal stenosis.No neural foraminal stenosis. L5-S1: No focal disc herniation is present. No central spinal canal stenosis.No neural foraminal stenosis. The visualized SI joints and sacrum are unremarkable. Soft tissues: The paraspinal soft tissues are unremarkable. IMPRESSION: No evidence of disc herniation. No evidence of significant spinal stenosis or neuroforaminal narrowing. DATA REPOSITORY:
== END 2025-08-24 01:34 ==
PROVIDERS: PCP Nurse Practitioner Family; Visit Provider Nurse Practitioner Family
DX: M54.16 Radiculopathy, lumbar region (principal); M54.12 Radiculopathy, cervical region
CPT/HCPCS: 72141; 72148